=== PATIENT | female | born 1945 | race Caucasian/White ===

== ENCOUNTER → 2017-05-10 12:22 | Outpatient (CLI) | payer MEDICARE, OTHER, SELFPAY ==
--- NOTE | 2017-05-10 13:00 | STEWCON_ITS ---
Reason For Study: Abnormal EKG, Syncope Stress Results Protocol: Dobutamine Stress Echo Maximum Predicted HR: 147 bpm Target HR: 125 bpm% Maximum Pre dicted HR: 88 % DurationHeart Rate Stage (mm:ss) (bpm) BPCom ment Baseline 73 156/95 Definity 0.5 ML USed DSE 10 MCG 3:16 65 137/77 DSE 20 MCG 3:00 71 174/71 DSE 30 MCG 5:05 13 0 173/88Atropine 0.5 MG IVP Recovery 86 131/74 Stress Duration: 11:21 mm:ss Maximum Stress HR: 130 bpmME TS: 1 Baseline Echocardiogram Findings Stress Echo Wall motion Data Resting WMIntermediate WMStress WM Resting Wall Motion Wall Motion Stress No regional wall motion Basal anteroseptal: Mildly abnormalities noted. hypokinetic. Mid-Anterior : Hypokinetic. Anterior [place] : Mildly hypokinetic. EKG Data NSR with LAHB, LBBB. The patient was titrated from 10 mcg to a maximun of 30 mcg of dobutamine during the stress. The maximum heart rate attained was 130 beats per minute. This was 88% of maximum predicted heart rate. During dobutamine infusion, there were no ST or T wave changes noted to suggest ischemia. Interpretation Summary Basal anteroseptal: Mildly hypokinetic Mid-Anterior : Hypokinetic Anterior [place] : Mildly hypokinetic The patient was titrated from 10 mcg to a maximun of 30 mcg of dobutamine during the stress. Abnormal, adequate dobutamine echocardiogram. Positive for ischemia by echocardiographic criteria. Patient had evidence of mid anterior anteroseptal and anteroapical hypokinesis at peak infusion noted in the parasternal long and parasternal short views. No anginal symptoms noted. Hypertensive blood pressure response to dobutamine. Patient developed A-V dissociation during infusion with associated episodes of supraventricular tachycardia with a wide-complex morphology. This persisted until around 2 minutes 22 seconds into recovery when the patient's rhythm restored to normal sinus rhythm with first-degree AV block. Decreased poor echo windows required Definity infusion. Final LVEF of 65%. Anterior wall motion abnormalities may have been made due to intraventricular conduction delay and ventricular arrhythmia. Recommend clinical correlation. Ordering Physician: Damion Alcantar Referring Physician: Damion Alcantar Performed By: Staci Arcos RDCS, RVT
== END ==
PROVIDERS: Family Provider Family Medicine; PCP Family Medicine; Visit Provider Internal Medicine Cardiovascular Disease
DX: R94.31 Abnormal electrocardiogram [ECG] [EKG] (principal); R55 Syncope and collapse; G47.33 Obstructive sleep apnea (adult) (pediatric); I27.20 Pulmonary hypertension, unspecified
CPT/HCPCS: 93017; 93350; J7030; Q9957; A4216; C8928

== ENCOUNTER → 2017-05-12 15:12 | Outpatient (CLI) | payer MEDICARE, OTHER, SELFPAY ==
[2017-05-12 14:22] VITALS: BP 136/72; BMI 36.8
[2017-05-12 16:39] LABS: Absolute Neutrophil Count 3.5 X10^3/uL (2.0-7.7); Basophil# 0.04 X10^3/uL; Basophil% 0.7 % (0-1); Eosinophil# 0.19 X10^3/uL; Eosinophils% 3.1 % (0-5); Hematocrit 42.4 % (37-47); Hemoglobin 13.9 g/dl (12.0-15.0); Lymphocyte % 28.1 % (19-41); Mean Corp Hgb Conc 32.8 g/gl (32-36); Mean Corpuscular Hgb 30.2 pg (27.0-32.0); Mean Corpuscular Volume 92.2 fL (81-99); Mean Platelet Vol. 9.6 fl (6.2-12.0); Monocyte# 0.57 X10^3/uL; Monocyte% 9.4 % (0-10); Neutrophil # 3.54 X10^3/uL (2.7-7.7); Neutrophil % 58.4 % (47-70); Platelet Count 190 K/mm3 (150-450); RBC Distribution Width CV 13.3 % (11.6-14.6); RBC Distribution Width SD 43.3 fl (35.1-43.9); White Blood Count 6.1 K/mm3 (4.4-11.0)
[2017-05-12 16:41] LABS: POSITIVE COUNT NO; POSITIVE DIFFERENTIAL NO; POSITIVE MORPHOLOGY NO
[2017-05-12 16:47] LABS: Prothrombin Time (Protime)PT. 12.5 SECONDS (11.7-14.9)
[2017-05-12 16:48] LABS: Partial Thromboplast Time 25.5 Seconds (24.1-36.2)
[2017-05-12 17:02] LABS: Anion Gap 6 (5-15); BUN 18 mg/dL (7-18); BUN/Creat Ratio 22.9 RATIO (10-20); Calcium,Total 8.5 mg/dL (8.5-10.1); Chloride 108 mmol/L (98-107); Creatinine, Serum 0.79 mg/dL (0.55-1.02); EST Glomerular Filtration Rate 76 mL/min (>60); Est Glom Filt Rate - Afr Amer 92 mL/min (>60); Glucose 100 mg/dL (74-106); Potassium 4.1 mmol/L (3.5-5.1); Sodium Level 141 mmol/L (136-145)
== END ==
PROVIDERS: Family Provider Family Medicine; PCP Family Medicine; Visit Provider Physician Assistant Medical
DX: R94.39 Abnormal result of other cardiovascular function study (principal); Z79.01 Long term (current) use of anticoagulants; R55 Syncope and collapse
CPT/HCPCS: 36415; 80048; 85025; 85610; 85730

== ENCOUNTER 2017-05-15 08:19 | Day surgery (SDC) | payer MEDICARE, OTHER, SELFPAY ==
[2017-05-12 14:22] VITALS: BP 136/72; BMI 36.8
[2017-05-15] VITALS (35 sets, daily range): BP systolic 102–172; BP diastolic 50–84; PULSE 68–83; RESP 12–19; TEMP 35.8–36.5; O2SAT 92–100; BMI 36.8; BMI 36.9
[2017-05-15 11:16] LABS: ACT Activated Clotting Time 202 sec (74-137)
--- NOTE | 2017-05-15 11:16 | EKG12_ITS ---
Test Reason : POST PCI Blood Pressure : / mmHG Vent. Rate : 063 BPM Atrial Rate : 063 BPM P-R Int : 186 ms QRS Dur : 160 ms QT Int : 464 ms P-R-T Axes : 079 -81 079 degrees QTc Int : 474 ms AV dual-paced rhythm Abnormal ECG Confirmed by LUANNE ALSTON, KARLA ([id number]), subeditor MADHU JOSE ([id number]) on 05/22/2017 2:13:42 PM Referred By: Damion Alcantar Confirmed By:KARLA STROUD MD
[2017-05-15] MEDS: 0.9% Normal Saline 1,000 ML 150 ML IV (11:45)
[2017-05-15 12:59] LABS: Hematocrit 41.3 % (37-47); Hemoglobin 13.9 g/dl (12.0-15.0); Mean Corp Hgb Conc 33.7 g/gl (32-36); Mean Corpuscular Hgb 30.5 pg (27.0-32.0); Mean Corpuscular Volume 90.8 fL (81-99); Mean Platelet Vol. 12.2 fl (6.2-12.0); Platelet Count 254 K/mm3 (150-450); RBC Distribution Width CV 14.1 % (11.6-14.6); RBC Distribution Width SD 45.1 fl (35.1-43.9); Red Blood Count 4.55 M/mm3 (4.2-5.4); Scan Indicated on CBC? Y/N NO
--- NOTE | 2017-05-15 13:37 | CRPH1.INST_ITS ---
General Education CAD and cardiac anatomy and function:: Patient communicates acknowledgment Explanation of diagnoses and procedures:: Patient communicates acknowledgment Sign/Symptoms of MA:: Patient communicates acknowledgment Antiplatelet therapy: Patient communicates acknowledgment Proper use of NTG-SL: Not instructed Emergency procedures and activation of EMS: Patient communicates acknowledgment Compliance of all prescribed medications: Patient communicates acknowledgment Smoking Patient Nicotine/Smoking Risk Factors Are:: Non-smoker Nicotine/Smoking Response Code:: Patient communicates acknowledgment Dyslipidemia Patient Dyslipidemia Risk Factors Are:: Total Cholesterol, Triglycerides Dyslipidemia Response Code:: Patient communicates acknowledgment Overweight/Obesity Patient Overweight/Obesity Risk Factors Are:: Obesity - > or = 30 Recommendations Include:: Weight loss of 5-10%, Reduced calorie diet, Exercise 5 -7 times/week Overweight/Obesity:: Patient communicates acknowledgment Hypertension Patient Hypertension Risk Factors Are:: No documented hx of HTN Hypertension:: Patient communicates acknowledgment Heart Disease Heart Disease Response Code:: Patient communicates acknowledgment Diabetes Patient Diabetes Risk Factors Are:: No documented hx of diabetes Diabetes:: Patient communicates acknowledgment Metabolic Syndrome Metabolic Syndrome Response Code:: Patient communicates acknowledgment Sedentary Patient Sedentary Risk Factors Are:: Lack of regular exercise Recommendations Include:: Aerobic exercise 5-7 times/week for 20-30 minutes continuously, Benefits of regular exercise, Discussed home walking program, Monitored Outpatient Cardiac Rehab Sedentary Response Code:: Patient communicates acknowledgment Stress Stress Response Code:: Patient communicates acknowledgment
--- NOTE | 2017-05-15 13:37 | CRPHASE1 ---
Patient Data/Charges Director Learning Services:: Damion Alcantar Refer Phase II:: Yes Phase II Referral:: [facility] Risk Factors/Lifestyle Smoking Status: Never smoker Second-Hand Smoke:: No Hx Hypertension: No Hx Diabetes Mellitus Type 1: No Hx Diabetes Mellitus Type 2: No Hx Metabolic Disorders: No Hx Dyslipidemia: Yes Hx Obesity: Yes Height: 1.6 m Weight:: 94.6 kg BMI: 36.9 ETOH: No Caffeine: No Substance Abuse: No Family History: Family History (Last Updated 05/12/17 @ 14:04 by Amrit Juarez) Father Unknown family medical history Phase I Education Given On:: [place], Nutrition, Antiplatelet medication, CHF, Smoking cessation, Diabetes - Type I, Diabetes - Type II Issues Affecting Care:: Physical - back and arm Knowledge of Condition:: Yes Learning Preferences: Verbal, Written, Audio/Visual, Demonstration Hospital Course Cardiac Cath Date:: 05/15/17 Medical/Surgical History Dyslipidemia:: Yes GERD:: Yes CABG: No Pacemaker:: Yes
--- NOTE | 2017-05-15 13:42 | CRPHASE1_ITS ---
Patient Data/Charges Hybrid Tester:: Damion Alcantar Refer Phase II:: Yes Phase II Referral:: [facility] Risk Factors/Lifestyle Smoking Status: Never smoker Second-Hand Smoke:: No Hx Hypertension: No Hx Diabetes Mellitus Type 1: No Hx Diabetes Mellitus Type 2: No Hx Metabolic Disorders: No Hx Dyslipidemia: Yes Hx Obesity: Yes Height: 1.6 m Weight:: 94.6 kg BMI: 36.9 ETOH: No Caffeine: No Substance Abuse: No Family History: Family History (Last Updated 05/12/17 @ 14:04 by Amrit Juarez) Father Unknown family medical history Phase I Education Given On:: [place], Nutrition, Antiplatelet medication, CHF, Smoking cessation, Diabetes - Type I, Diabetes - Type II Issues Affecting Care:: Physical - back and arm Knowledge of Condition:: Yes Learning Preferences: Verbal, Written, Audio/Visual, Demonstration Hospital Course Cardiac Cath Date:: 05/15/17 Medical/Surgical History Dyslipidemia:: Yes GERD:: Yes CABG: No Pacemaker:: Yes
[2017-05-15 13:56] LABS: CPK Total, Creatine Kinase 150 U/L (26-192)
[2017-05-15 14:41] LABS: ACT Activated Clotting Time 158 sec (74-137)
[2017-05-15] MEDS: Gabapentin 600 MG Tablet PO (16:43)
[2017-05-15] MEDS: DULoxetine Hcl 60 MG Capsule 120 MG PO (16:43)
[2017-05-15] MEDS: Mirabegron 50 MG TAB.ER.24H PO (16:43)
[2017-05-15] MEDS: Celecoxib 200 MG Capsule 400 MG PO (16:43)
[2017-05-15 18:24] LABS: Hemoglobin 13.1 g/dl (12.0-15.0); Mean Corp Hgb Conc 32.8 g/gl (32-36); Mean Corpuscular Hgb 29.8 pg (27.0-32.0); Mean Corpuscular Volume 90.9 fL (81-99); Mean Platelet Vol. 9.3 fl (6.2-12.0); Platelet Count 167 K/mm3 (150-450); RBC Distribution Width CV 13.2 % (11.6-14.6); RBC Distribution Width SD 43.6 fl (35.1-43.9); White Blood Count 7.4 K/mm3 (4.4-11.0)
[2017-05-15 18:42] LABS: Scan Indicated on CBC? Y/N NO
[2017-05-15 19:04] LABS: CPK Total, Creatine Kinase 160 U/L (26-192)
--- NOTE | 2017-05-15 20:30 | NURSING ---
16f appiah catheter inserted with sterile technique per Physician order. Indications and procedure explained to pt. Pt verbalizing understanding and denies questions. 10ml of sterile water inflating balloon. 200 ml Clear yellow urine draining at this time.
[2017-05-15 23:01] LABS: Hematocrit 40.1 % (37-47); Hemoglobin 13.2 g/dl (12.0-15.0); Mean Corp Hgb Conc 32.9 g/gl (32-36); Mean Corpuscular Hgb 29.9 pg (27.0-32.0); Mean Corpuscular Volume 90.9 fL (81-99); Platelet Count 162 K/mm3 (150-450); RBC Distribution Width CV 13.2 % (11.6-14.6); RBC Distribution Width SD 43.5 fl (35.1-43.9); Red Blood Count 4.41 M/mm3 (4.2-5.4); White Blood Count 7.8 K/mm3 (4.4-11.0)
[2017-05-15 23:02] LABS: Scan Indicated on CBC? Y/N NO
[2017-05-15 23:16] LABS: CPK Total, Creatine Kinase 156 U/L (26-192)
[2017-05-16] VITALS (17 sets, daily range): BP systolic 106–147; BP diastolic 48–69; PULSE 71–85; RESP 12–17; TEMP 35.9–37.2; O2SAT 95–100
[2017-05-16 06:30] LABS: Hematocrit 39.7 % (37-47); Hemoglobin 12.9 g/dl (12.0-15.0); Mean Corp Hgb Conc 32.5 g/gl (32-36); Mean Corpuscular Hgb 29.9 pg (27.0-32.0); Mean Corpuscular Volume 91.9 fL (81-99); Mean Platelet Vol. 9.5 fl (6.2-12.0); Platelet Count 155 K/mm3 (150-450); RBC Distribution Width CV 13.2 % (11.6-14.6); RBC Distribution Width SD 44.6 fl (35.1-43.9); Red Blood Count 4.32 M/mm3 (4.2-5.4); White Blood Count 7.7 K/mm3 (4.4-11.0)
[2017-05-16 06:38] LABS: Scan Indicated on CBC? Y/N NO
[2017-05-16 06:56] LABS: Anion Gap 6 (5-15); BUN 13 mg/dL (7-18); Calcium,Total 8.3 mg/dL (8.5-10.1); Chloride 108 mmol/L (98-107); Cholesterol 198 mg/dL (200); Creatinine, Serum 0.68 mg/dL (0.55-1.02); EST Glomerular Filtration Rate 89 mL/min (>60); Est Glom Filt Rate - Afr Amer 108 mL/min (>60); Estimated Creatinine Clearance 41.45 ml/min; Glucose 103 mg/dL (74-106); High Density Lipoprotein 51 mg/dL; Potassium 3.8 mmol/L (3.5-5.1); Sodium Level 140 mmol/L (136-145); Triglycerides 103 mg/dL; Very Low Density Lipoprotein 21 mg/dL (5-40)
[2017-05-16 07:21] LABS: ACT Activated Clotting Time 180 sec (74-137)
[2017-05-16] MEDS: Aspirin 81 MG TAB.CHEW PO (07:33)
[2017-05-16] MEDS: Gabapentin 600 MG Tablet PO (07:33)
--- NOTE | 2017-05-16 09:06 | PCM.DC.CCA ---
Discharge Diet: Low fat/ Low Cholesterol Discharge Activity: Return to Normal Activity - Do not lift anything greater than 10 lbs for 3 days May shower in (days): 1 Lifting Restrictions: 10 pounds and also avoid any pushing or pulling for 3 days after your test. Call your doctor if your incision/area has: Increased Pain/ Swelling, Increased Redness, Foul Smelling Discharge, Swelling at the incision site Call your doctor if you observe: Fever of 101 or Higher, Shortness of breath, Chest pain Remove Dressing in (days):: 1 Cleanse incision/area with: Soap & Water Additional Dressing/Incision Instructions:: Keep the dressing (bandage) on until the next morning. You may then shower, but do not take a tub bath for 5 days after your test. It is normal to have some tenderness and discomfort at the puncture site. Sometimes bruising also occurs. However, if pain, numbness, or coldness occurs below the puncture site (in your leg, toes, arms or fingers) call your doctor at once. You may have a small, marble sized knot at the puncture site. This is normal. Do not rub it. It will go away in 4-6 weeks. Bleeding can occur from the area where the puncture was done. Blood may spurt or drip from the site. If blood spurts, apply pressure right away to stop bleeding and call 911. Although rare, bleeding into the tissue (hematoma) can also occur. If this happens, a large, firm area goose egg under the skin will appear. If any of these occur, lie down as flat as you can and have someone apply firm pressure to the cath site with a gauze pad or a clean washcloth for 10-15 minutes. Call 911 or go to the Emergency Department. Additional Instructions: You were started on Plavix, you need to stay on Plavix for at least one year before this can be interrupted. If anyone asks that you hold your Plavix you need to contact our office prior to doing so. Unfortunately this means that you back surgery will be post-poned. At your office visit we will discuss cardiac rehab. Allergies/Adverse Reactions: Allergies acetaminophen [From Vicodin] Allergy (Verified 05/12/17 14:03) Itching amoxicillin [From Augmentin] Allergy (Verified 05/12/17 14:03) Unknown atorvastatin [From Lipitor] Allergy (Verified 05/12/17 14:03) Arm pain clavulanic acid [From Augmentin] Allergy (Verified 05/12/17 14:03) Itching hydrocodone [From Vicodin] Allergy (Verified 05/12/17 14:03) Itching pregabalin [From Lyrica] Allergy (Verified 05/12/17 14:03) Rash rofecoxib [From Vioxx] Allergy (Verified 05/12/17 14:03) Unknown sulindac [From Clinoril] Allergy (Verified 05/12/17 14:03) Unknown Medications to take at Discharge Clonazepam [Klonopin] 0.5 mg PO DAILY 12/16/16 Duloxetine Hcl [Cymbalta] 120 mg PO DAILY 12/16/16 Fentanyl [Duragesic] 50 mcg TRANSDERM. Q72H 12/16/16 Gabapentin [Neurontin] 600 mg PO BIDCM 12/16/16 Mirabegron [Myrbetriq] 50 mg PO DAILY 12/16/16 Montelukast [Singulair] 10 mg PO DAILY 12/16/16 Oxygen, Home [Home Oxygen] 2 lpm NASAL QHS 12/16/16 TraMADol [Ultram] 50 mg PO Q6H PRN PRN 12/16/16 Trospium Chloride [Sanctura Xr] 60 mg PO DAILY 12/16/16 celecoxib 200 mg capsule 400 mg PO QDAY cap 05/12/17 clopidogrel 75 mg tablet 75 mg PO QDAY #34 tab 05/12/17 Aspirin [Aspirin, Baby] 324 mg PO DAILY@0800 05/15/17 Primary Care Physician: Marta Perez DO [Primary Care Provider] - Please follow up with your Primary Care Physician in: 4-6 weeks Please Follow Up With: Heriberto Vale NP-C When: 06/08 at 10am Proposed Discharge Date: 05/16/17 Cardiac Rehabilitation Info Cardiac Rehabilitation Program Information: Cardiac Rehabilitation is important for patients like you who are recovering from a heart problem. Cardiac rehabilitation programs are recognized as integral to the continued care of the patient with coronary heart disease. The cardiac rehabilitation program is designed to optimize a patient's physical, psychological, and social functioning. Health director day care center work in cardiac rehabilitation programs and assist you with getting the treatments you need to get stronger and healthier - like exercise, healthy eating habits, and medications. Cardiac rehabilitation has been show to help people with heart problems live longer and have better life enjoyment than people who do not go to cardiac rehabilitation. Please contact the Cardiac Rehabilitation Program at [facility] at in two weeks if you have not heard from them.
--- NOTE | 2017-05-16 09:42 | PN.CARD_ITS ---
Subjectve: Patient doing well this morning, telemetry negative overnight, EKG normal sinus rhythm with paced ventricular response, no ventricular ectopy noted. CKs within normal limits, hemoglobin and creatinine within normal limits. Patient has some mild ecchymosis over her right groin, and required temporary FemoStop placement last evening for a small hematoma. The patient has 2+ DP pulses this morning. She has no femoral bruits. Objective: Vital Signs Temp Pulse Resp BP Pulse Ox 98.9 F 76 17 143/66 H 96 05/16/17 08:00 05/16/17 08:00 05/16/17 08:00 05/16/17 08:00 05/16/17 08:00 Oxygen Flow Rate 2 Oxygen Delivery Method Room Air Weight: 205 lb 11.06 oz Body Mass Index (BMI) 36.9 Intake and Output for Last 24 Hours 05/14/17 05/15/17 05/16/17 23:59 23:59 23:59 Intake Total 1000 / 1000 1300 / 1300 Output Total 1200 / 1200 750 / 750 Balance -200 / -200 550 / 550 General: Awake, Alert, Oriented x 3 HEENT: PERRL, EOMI, Sclera Non Icteric Neck: Supple, Good ROM, No Lymph Node Enlargement Lungs: Clear to auscultation Cardiovascular: Regular Rhythm, Normal S1, Normal S2, No Murmurs, No Rubs, No Gallops Vascular: No Carotid Bruits, Normal Femoral Pulses, Normal Radial Pulses, Normal Dorsalis Pedal Pulse, Normal Posterior Tibial Pulses Abdomen: Bowel Sounds Present, Soft, Non Tender, No HSM, No Organomegaly Extremities: No Cyanosis, No Clubbing, No edema Neurological: No Focal Motor or Sensory Deficit 05/15/17 12:40: WBC 6.0, RBC 4.55, Hgb 13.9, Hct 41.3, MCV 90.8, MCH 30.5, MCHC 33.7, RDW 14.1, RDW Differential 45.1 H, Plt Count 254, MPV 12.2 H 05/15/17 18:00: WBC 7.4, RBC 4.40, Hgb 13.1, Hct 40.0, MCV 90.9, MCH 29.8, MCHC 32.8, RDW 13.2, RDW Differential 43.6, Plt Count 167, MPV 9.3 05/15/17 22:55: WBC 7.8, RBC 4.41, Hgb 13.2, Hct 40.1, MCV 90.9, MCH 29.9, MCHC 32.9, RDW 13.2, RDW Differential 43.5, Plt Count 162, MPV 9.0 05/16/17 06:00: WBC 7.7, RBC 4.32, Hgb 12.9, Hct 39.7, MCV 91.9, MCH 29.9, MCHC 32.5, RDW 13.2, RDW Differential 44.6 H, Plt Count 155, MPV 9.5 05/16/17 06:10: Sodium 140, Potassium 3.8, Chloride 108 H, Carbon Dioxide 26.0, Anion Gap 6, BUN 13, Creatinine 0.68, Est GFR (MDRD) Af Amer 108, Est GFR (MDRD ) Non-Af 89, BUN/Creatinine Ratio 19.0, Glucose 103, Calcium 8.3 L, Triglycerides 103, Cholesterol 198, LDL Cholesterol 126, VLDL Cholesterol 21, HDL Cholesterol 51 Rhythm: EKG: ECHO: Stress Test: Cardiac Cath: PCI: CT Surgery: Holter monitor: EPS: PPM: CXR: Chest CT Scan: Assessment/Plan 1. Coronary artery disease: Patient had FFR guided angioplasty and stenting to her mid LAD and proximal obtuse marginal yesterday with an excellent result. No additional evaluation or stress testing needs to be performed at this time. Patient will need to postpone her back surgery at least for 6 months time and this was discussed with her prior to intervention. Patient remain on baby aspirin and Plavix for as long as possible.. Patient is unable to tolerate beta -caleb and MATILDA inhibitor arms at this time. 2. Hyperlipidemia: Patient is unable to tolerate Lipitor in the past. Recommended outpatient gemfibrozil trial and repeat lipid profile in 6 weeks time. 3. Patient may be discharged home if her right groin is clean/dry/intact after removal of her [place], and ambulation. I advised the patient to notify us immediately if there is any pain, hematoma, bleeding, fevers or chills. In addition she has had some mild dementia or sundowning phenomena last evening which has completely resolved this morning. This is been related to the family. 4. Patient will follow-up with me in the office in several weeks time. Code Visit Inpatient E&M: 38305 Subs Hosp L2
[2017-05-16] MEDS: Mirabegron 50 MG TAB.ER.24H PO (10:17)
[2017-05-16] MEDS: Clopidogrel Bisulfate 75 MG Tablet PO (10:17)
[2017-05-16] MEDS: Montelukast 10 MG Tablet PO (10:18)
[2017-05-16] MEDS: clonazePAM 0.5 MG Tablet PO (10:20)
--- NOTE | 2017-05-16 11:16 | EKG12_ITS ---
Test Reason : AM EKG Blood Pressure : / mmHG Vent. Rate : 073 BPM Atrial Rate : 073 BPM P-R Int : 188 ms QRS Dur : 156 ms QT Int : 458 ms P-R-T Axes : 067 -77 079 degrees QTc Int : 504 ms Atrial-sensed ventricular-paced rhythm Abnormal ECG Confirmed by LUANNE ALSTON, KARLA ([id number]), editor map MADHU JOSE ([id number]) on 05/22/2017 2:12:58 PM Referred By: Damion Alcantar Confirmed By:KARLA STROUD MD
--- NOTE | 2017-05-17 10:49 | CL.I_ITS ---
Patient Name: VALENCIA HENRY Study Date: 05/15/2017 Performing: Damion Alcantar MD Ht: 62.99 inches 160 cm : 1945 Wt: 207.23 lbs 94 kg Age: 71 Gender: female BSA: 1.96 PROCEDURE(S) PERFORMED ES28-AHK/COR/LV JN99-NCT, CORONARY OR GRAFT, INITIAL VESSEL CLINICAL PROFILE AND CO-MORBIDITIES INDICATIONS: Abnormal cardiac stress test, Shortness of Breath Stress/Imaging Stress Echocardiogram: Yes Result: Positive High Risk Stress Echocardiogram: Posit deann High Risk Angina Classification Anginal Classification w/in 2 Weeks: CCS III CAD Presentations: Other: Dyspnea on exertion. Comorbidities/Risk Factors: Hypertension Dyslipidemia Chronic Lung Disease CONCLUSIONS Double vessel CAD of the LAD and OM#1 Non-obstructive disease in non-dominant RCA; too small for PCI. Successful PTCA/PALMA of the Successful FFR guided PCI/PALMA to mid LAD with a 3.0 x 12 Promus Synergy; p ost dilated with 3.25 x 8 NC Balloon; 75%-->0%, no dissection or significant plaque shift into DIAG#1 . Successful PTCA/PALMA of the Successful FFR guided PCI/PALMA of Proximal OM#1 with a 3.0 x 20 Promus Syne rgy at 12 jaylene; 75%--0%, no dissection or encroachment on main AV LCX. RECOMMENDATIONS FFR of LAD and OM#1; medical management of RCA. Highly recommend quitting all tobacco products Follow up with primary assessor Risk factor modification ASA Indefinitley Plavix for at least 12 months Routine post interventional care Refer for Outpatient Cardiac Rehab Manual sheath removal per protocol Follow up with Dr. Alcantar Pt will need at least 6 months of DAPT prior to back surgery. Would recommend repeat dobs echo prior to surgery. DESCRIPTION OF PROCEDURE The patient arrived to the procedure lab. The risks and benefits of the procedure as well as a full d escription of our services here and lack of surgical backup were fully explained to the patient and/o r their significant other prior to the catheterization. The Timeout was completed, verifying the kleber ect patient and procedure. The patient's procedural site was prepped and draped in the usual fashion. Local anesthetic was given subcutaneously to right groin region with Lidocaine 2%. Using a modified Seldinger technique, arterial access was obtained via the right femoral artery, a 4Fr sheath was inse rted. Left Coronary Artery selective angiography was performed in multiple views using a 4 Fr. JL5 c atheter. Right Coronary Artery selective angiography was then performed in multiple views using a 4 F r. 3DRC catheter. Left Ventriculography was performed in GIPSON projection using a 4 Fr. Pigtail cathete r. LV to AO pullback pressures were then recorded Arterial sheath was exchanged for a 6 Fr Sheath 3.5 EBU Guide catheter was inserted and engaged into the LCA. [employer] Verratta Guide wire was advanced to the LAD. The FFR/iFR wire was inserted Adenosin e was then given per protocol Pressures and FFR/iFR were then recorded. FFR Ratio post Adenosine: 0.7 8 FFR Ratio Baseline: 0.91 universal Guide wire was advanced to the 1st Diagonal. Guide wire was inse rted as a payam wire 3.0 by 12 synergy Drug Eluting stent was inserted Drug Eluting stent was advance d across the lesion in the LAD, mid. 3.25 by 8 NC Balloon catheter was inserted. Balloon catheter was inserted post stent. [place]atta Guide wire was repositioned to the 1st OM Adenosine was then given per protocol Pressures and FFR/iFR were then recorded. FFR Ratio Baseline: 0.96 FFR Ratio post Adenosine : 0.76 3.0 by 20 Drug Eluting stent was inserted Drug Eluting stent was advanced across the lesion in the first obtuse marginal, proximal.. . The arterial sheath was sutured in place and capped. CORONARY ANGIOGRAPHY DOMINANCE: Left Dominant LEFT HEART ASSESSMENT Left Ventricular Ejection Fraction: by LV Gram 65 % Normal LV wall motion LEFT MAIN: Angiographically normal LEFT ANTERIOR DECENDING ARTERY: MID LAD: 75 % Stenosis CIRCUMFLEX ARTERY: Angiographically normal OM 1: Proximal - 75 % Stenosis RIGHT CORONARY ARTERY: MID RCA: 60 mid diffuse % Stenosis INTERVENTION INFORMATION LESION SITE: LAD (Mid) lesion at bifurcation: Yes, thrombus present: No, lesion length: 12 mm, culprit lesion: Yes, Lesion C omplexity: Non-High/Non-C Pre Stenosis: 75 % Pre intervention CECE flow: 3 PROCEDURE: Drug Eluting Stent with pre and post dilatation, FFR of mid LAD=0.78 Post Stenosis: 0 % Post intervention CECE flow: 3 Lesion Devices: Agent Panda Coronary FFR Wire Medtronic 6 Fr EBU3.5 100cm Guide Catheter [place] .014 [employer] [place] Straight 190cm Joel Sci Synergy MR PALMA 3.00x12 Joel Sci NC EMERGE MR 3.25x08 BALLOON LESION SITE: 1st OM (Proximal) Lesion Complexity: High/C, lesion at bifurcation: Yes, thrombus present: No, culprit lesion: No Pre Stenosis: 75 % Pre intervention CECE flow: 3 PROCEDURE: Drug Eluting Stent with pre and post dilatation FFR=0.76 Post Stenosis: 0 % Post intervention CECE flow: 3 Lesion Devices: [place] Coronary FFR Wire Medtronic 6 Fr EBU3.5 100cm Guide Catheter Joel Sci Synergy MR PALMA 3.00x20 COMPLICATIONS No Complications PROCEDURE MEDICATIONS Oxygen: 2 L/min via nasal cannula Adenosine drip for FFR 21.8 ml IV at 774ml/hr 05/15/2017 10:23:15 Adenosine drip for FFR 15.7 ml IV at 774ml/hr @ 05/15/2017 10:44:54 Heparin 6000 unit(s) IV 05/15/2017 10:22:25 Heparin 4000 unit(s) IV 05/15/2017 10:59:08 Nitro 200 mcg IC 05/15/2017 10:22:20 Nitro 200 mcg IC 05/15/2017 10:22:20 Nitro 200 mcg IC 05/15/2017 10:38:09 IV Fluids: .9 NaCl increased to wide open ml/hr 05/15/2017 10:31:14 SUMMARY OF HEMODYNAMIC DATA Time AIR REST ECG 09:17:46 AO 114/62 (85) SA 10:10:32 LV 142/-5, 11 10:16:36 LV 128/-14, 4 10:16:42 LVp 114/-16, 0 10:16:49 AOp 118/48 (73) 10:16:54 AO 91/49 (68) 10:38:50 Signed By Damion Alcantar MD On 05/15/2017 11:03:58 AM Damion Alcantar MD
== END 2017-05-16 12:40 | disposition home or self-care (01) ==
LOC: CLSP 08:20 → ICU 11:13
PROVIDERS: Family Provider Family Medicine; PCP Family Medicine; Visit Provider Internal Medicine Cardiovascular Disease
DX: I25.10 Atherosclerotic heart disease of native coronary artery without angina pectoris (principal); E78.5 Hyperlipidemia, unspecified; F03.90 Unspecified dementia, unspecified severity, without behavioral disturbance, psychotic disturbance, mood disturbance, and anxiety; I10 Essential (primary) hypertension; J98.4 Other disorders of lung; G47.33 Obstructive sleep apnea (adult) (pediatric); K21.9 Gastro-esophageal reflux disease without esophagitis; R94.39 Abnormal result of other cardiovascular function study; I27.29 Other secondary pulmonary hypertension; Z95.0 Presence of cardiac pacemaker
CPT/HCPCS: 80048; 80061; 82550; 85027; 85347; 92928; 93005; 93458; 93571; 93572; J0153; J7030; J7040; Q9967; C1725; C1769; C1874; C1887; C1894; C9600

== ENCOUNTER → 2017-05-22 14:09 | Outpatient (CLI) | payer MEDICARE, OTHER, SELFPAY ==
[2017-05-15 13:41] VITALS: BMI 36.9
--- NOTE | 2017-05-22 14:13 | RAD_ITS ---
STUDY: X-RAY - LEFT WRIST REASON FOR EXAM: Female, 71 years old. Fracture follow-up TECHNIQUE: 3 view(s) of the wrist were obtained. COMPARISON: 05/01/2017. FINDINGS: Again seen is a comminuted impacted fracture of the distal radial metaphysis with dorsal rotation of the articular surface. Although there is some new bone formation, the fracture lines are very evident and nonunion is not excluded. There is shortening. There is a mildly distracted fracture of the tip of the ulnar styloid. There is no dislocation. There is mineralization. RAD/Wrist min 3 Views IMPRESSION: Continued extensive fractures of the distal radius. Nonunion not excluded. Electronically Signed: Alberto Duong MD at 18:48 EST , Service support ,
== END ==
PROVIDERS: Family Provider Family Medicine; PCP Family Medicine; Visit Provider Orthopaedic Surgery
DX: M25.532 Pain in left wrist (principal)
CPT/HCPCS: 73110

== ENCOUNTER → 2017-06-12 12:52 | Outpatient (CLI) | payer MEDICARE, OTHER, SELFPAY ==
[2017-05-15 13:41] VITALS: BMI 36.9
--- NOTE | 2017-06-12 12:57 | RAD_ITS ---
STUDY: X-RAY - LEFT WRIST REASON FOR EXAM: Fracture. TECHNIQUE: 3 view(s) of the wrist were obtained. COMPARISON: Radiographs 05/22/2017. FINDINGS: There is osteopenia. There is no change in alignment and position of the mildly impacted and mildly dorsal angulated healing fracture of the distal radius. There is an ulnar styloid process avulsion. Normal radiocarpal articulation. Normal distal radioulnar articulation. Normal carpal bones. There is joint space narrowing of the triscaphe articulation. There is joint space narrowing of the carpometacarpal articulation of the thumb. Normal second through fifth carpometacarpal articulations. Normal visualized metacarpal bones. There is a small soft tissue calcification ulnar to the distal ulnar diaphysis. RAD/Wrist min 3 Views IMPRESSION: No significant change of the healing distal radial fracture. Electronically Signed: Walker Hunter MD at 14:57 EST Tel , Service support ,
== END ==
PROVIDERS: Family Provider Family Medicine; PCP Family Medicine; Visit Provider Orthopaedic Surgery
DX: M25.532 Pain in left wrist (principal)
CPT/HCPCS: 73110

== ENCOUNTER → 2017-06-15 14:19 | Outpatient (CLI) | payer MEDICARE, OTHER, SELFPAY ==
[2017-05-15 13:41] VITALS: BMI 36.9
== END ==
PROVIDERS: Family Provider Family Medicine; PCP Family Medicine; Visit Provider Family Medicine
DX: R41.0 Disorientation, unspecified (principal); R30.0 Dysuria
CPT/HCPCS: 87077; 87086; 87088; 87186

== ENCOUNTER → 2017-07-05 10:08 | Outpatient (CLI) | payer MEDICARE, OTHER, SELFPAY ==
[2017-05-15 13:41] VITALS: BMI 36.9
== END ==
PROVIDERS: Family Provider Family Medicine; PCP Family Medicine; Visit Provider Family Medicine
DX: N30.00 Acute cystitis without hematuria (principal)
CPT/HCPCS: 87086; 87088

== ENCOUNTER → 2017-08-21 13:51 | Outpatient (CLI) | payer MEDICARE, OTHER, SELFPAY ==
[2017-05-15 13:41] VITALS: BMI 36.9
--- NOTE | 2017-08-21 13:53 | BI_ITS ---
MAMMOGRAPHY - BILATERAL SCREENING REASON FOR EXAM: Female, 71 years old. Routine annual screening examination. PERTINENT HISTORY: Non-contributory. TECHNIQUE: Digital bilateral breast vijaya (3D mammographic acquisition) in the CC and MLO projections. 2-D mediolateral oblique (MLO) and craniocaudad (CC) views of both breasts were obtained. CAD: Full Field Digital Mammography with Computer Added Detection was performed. COMPARISON: Comparison is made with prior study dated July 15, 2016 and July 01, 2015. FINDINGS: Breast Composition: The breasts are heterogeneously dense, which may obscure small masses. There are no dominant masses or suspicious calcifications. No other significant abnormalities are identified. There has been no significant change since the prior study. BI/SCREENING MAMM (CAD), BILAT IMPRESSION: Stable bilateral screening mammogram. Yearly follow-up mammogram recommended. (A) ASSESSMENT CATEGORY: BIRADS Category 1: Negative. A letter regarding these results will be sent to the patient by the facility within 30 days. Approximately 10% of breast cancers are not detected by mammography. A normal mammogram should not delay biopsy of a clinically suspicious abnormality. [id number] Electronically Signed: Walt Mar MD at 15:24 EDT Tel [phone], Service support ,
== END ==
PROVIDERS: Family Provider Family Medicine; PCP Family Medicine; Visit Provider Family Medicine
DX: Z12.31 Encounter for screening mammogram for malignant neoplasm of breast (principal)
CPT/HCPCS: 77063; 77067

== ENCOUNTER → 2018-04-19 14:01 | Outpatient (CLI) | payer MEDICARE, OTHER, SELFPAY ==
[2017-05-15 13:41] VITALS: BMI 36.9
[2018-04-19 13:17] VITALS: BMI 37.3
[2018-04-19 15:22] LABS: AST(SGOT) 24 U/L (15-37); Alanine Aminotransfer ALT/SGPT 29 U/L (13-56); Albumin, Serum 3.9 g/dL (3.2-5.0); Alkaline Phosphatase 96 U/L (45-117); Bilirubin, Direct 0.12 mg/dL (0.00-0.30); Cholesterol 221 mg/dL (200); Globulin 3.6 g/dL (2.2-4.2); High Density Lipoprotein 68 mg/dL; Protein, Total 7.5 g/dL (6.4-8.2); Triglycerides 63 mg/dL; Very Low Density Lipoprotein 13 mg/dL (5-40)
== END ==
PROVIDERS: Family Provider Family Medicine; PCP Family Medicine; Referring Provider Internal Medicine Cardiovascular Disease; Visit Provider Internal Medicine Cardiovascular Disease
DX: E66.9 Obesity, unspecified (principal); E78.00 Pure hypercholesterolemia, unspecified; Z95.9 Presence of cardiac and vascular implant and graft, unspecified; Z68.39 Body mass index [BMI] 39.0-39.9, adult
CPT/HCPCS: 36415; 80061; 80076

== ENCOUNTER → 2018-05-01 13:44 | Outpatient (CLI) | payer MEDICARE, OTHER, SELFPAY ==
[2017-05-15 13:41] VITALS: BMI 36.9
[2018-04-19 13:17] VITALS: BMI 37.3
--- NOTE | 2018-05-01 13:50 | STEWCON_ITS ---
Reason For Study: PREOP, CAD/ASHD Stress Results Protocol: Dobutamine Maximum Predicted HR: 146 bpm Target HR: 124 bpm % Maximum Predicted HR: 87 % DurationHeart Rate Stage (mm:ss) (bpm) BP Dose Comment BASELINE 70 151/69 2CC DEFINITY STAGE 1 3:15 70 / 10.001CC DEFINITY, BP DID NOT REGISTER STAGE 2 3:00 85 220/8620.00NO SYMPTOMS STAGE 3 3:28 124 202/9030.002CC DEFINITY, 0.25 MG ATROPINE, NO SYMPTOMS STAGE 4 1:34 127 / 40.00 RECOVERY 102 140/90 1 CC DEFINITY Stress Duration: 11:17 mm:ss Maximum Stress HR: 127 bpm Baseline Echocardiogram Findings The estimated ejection fraction is 65 %. Stress Echo Wall motion Data Resting WM Intermediate WM Stress WM Resting Wall Motion Wall Motion Stress No regional wall motion No regional wall motion abnormalities noted. abnormalities noted. EKG Data Normal intervals are noted. The patient was titrated from 10 mcg to a maximum of 40 mcg of dobutamine during the stress. The maximum heart rate attained was 131 beats per minute. This was 89% of maximum predicted heart rate. During dobutamine infusion, there were no ST or T wave changes noted to suggest ischemia. No clinical angina was noted. Interpretation Summary The estimated ejection fraction is 65 %. Abnormal, adequate, dobutamine echocardiogram. Positive for ischemia by echocardiographic criteria. Patient appeared to develop anteroseptal hypokinesis at peak infusion seen in the parasternal long, parasternal short, and apical four-chamber view. This coincided with rate dependent left bundle branch block. Hypertensive blood pressure response to dobutamine. Rare PVCs during infusion into recovery. Left bundle branch block resolved and reverted back to normal sinus rhythm with incomplete right bundle branch block. Final LVEF of 50%. Difficult echo windows requiring Definity enhancing agent. No complications. The study was technically difficult. Contrast injection was performed. Ordering Physician: Damion Alcantar MD Referring Physician: Damion Alcantar Performed By: Monica Swanson, JEFFREY, RVT
--- OUTSIDE RECORDS SUMMARY | 2018-07-03 18:37 | XMS RPT_ITS ---
:1945 Author Organization OHIP Support Name Relationship Address Phone RODNEY HENRY Unavailable [address] + [place] [address] CARL, ALBERTO Unavailable [address] + [place] [address] R Unavailable Unavailable Unavailable CARL, RODNEY Unavailable [address] + [place] [address] CARL, ALBERTO Unavailable [address] + [place] [address] R Unavailable Unavailable Unavailable CARL, RODNEY Unavailable [address] + [place] [address] CARL, ALBERTO Unavailable [address] + [place] [address] R Unavailable Unavailable Unavailable CARL, RODNEY Unavailable [address] + [place] [address] CARL, ALBERTO Unavailable [address] + [place] [address] R Unavailable Unavailable Unavailable CARL, RODNEY Unavailable [address] + [place] [address] CARL, ALBERTO Unavailable [address] + [place] [address] R Unavailable Unavailable Unavailable CARL, RODNEY Unavailable [address] + [place] [address] CARL, ALBERTO Unavailable [address] + [place] [address] R Unavailable Unavailable Unavailable CARL, RODNEY Unavailable [address] + [place] [address] CARL, ALBERTO Unavailable [address] + [place] [address] R Unavailable Unavailable Unavailable CARL, RODNEY Unavailable [address] + [place] [address] CARL ALBERTO Unavailable [address] + [place] [address] R Unavailable Unavailable Unavailable CARL, RODNEY Unavailable [address] [phone] [place] [address] CARL ALBERTO Unavailable [address] + [place] [address] R Unavailable Unavailable Unavailable CARL, RODNEY Unavailable [address] [phone] [place] [address] CARL, ALBERTO Unavailable [address] + [place] [address] R Unavailable Unavailable Unavailable CARL, RODNEY Unavailable [address] [phone] [place] [address] CARL ALBERTO Unavailable [address] + [place] [address] R Unavailable Unavailable Unavailable CARL, RODNEY Unavailable [address] [phone] [place] [address] CARL ALBERTO Unavailable [address] + [place] [address] R Unavailable Unavailable Unavailable CARL, RODNEY Unavailable [address] [phone] [place] [address] CARL ALBERTO Unavailable [address] + [place] [address] R Unavailable Unavailable Unavailable CARL, RODNEY Unavailable [address] [phone] [place] [address] CARL, ALBERTO Unavailable [address] + [place] [address] R Unavailable Unavailable Unavailable CARL, RODNEY Unavailable [facility] [phone] [place] [address] CARL, ALBERTO Unavailable [address] + [place] [address] R Unavailable Unavailable Unavailable CARL, RODNEY Unavailable [address] [phone] [place] [address] CARL, ALBERTO Unavailable [address] + [place] [address] R Unavailable Unavailable Unavailable CARL, BOB Unavailable [address] [phone] [place] [address] CARL, ALBERTO Unavailable [address] + [place] [address] R Unavailable Unavailable Unavailable CARL, BOB Unavailable [address] [phone] [place] [address] CARL, ALBERTO Unavailable [address] + [place] [address] R Unavailable Unavailable Unavailable RODNEY HENRY Unavailable [address] [phone] [place] [address] CARL, ALBERTO Unavailable [address] + [place] [address] R Unavailable Unavailable Unavailable CARLRODNEY Unavailable [address] [phone] [place] [address] CARL, ALBERTO Unavailable [address] + [place] [address] R Unavailable Unavailable Unavailable RODNEY HENRY Unavailable [address] [phone] [place] [address] CARL, ALBERTO Unavailable [address] + [place] [address] R Unavailable Unavailable Unavailable RODNEY HENRY Unavailable [address] [phone] [place] [address] CARL, ALBERTO Unavailable [address] + [place] [address] R Unavailable Unavailable Unavailable CARLRODNEY Unavailable [address] [phone] [place] [address] CARL, ALBERTO Unavailable [address] + [place] [address] R Unavailable Unavailable Unavailable CARLRODNEY Unavailable [address] [phone] [place] [address] CARL, ALBERTO Unavailable [address] + [place] [address] R Unavailable Unavailable Unavailable CARL, RODNEY Unavailable [address] [phone] [place] [address] CARL, ALBERTO Unavailable [address] + [place] [address] R Unavailable Unavailable Unavailable CARL, RODNEY Unavailable [address] + [place] [address] CARL, ALBERTO Unavailable [address] + [place] [address] R Unavailable Unavailable Unavailable CARL, RODNEY Unavailable [address] + [place] [address] CARL, ALBERTO Unavailable [address] + [place] [address] R Unavailable Unavailable Unavailable Care Team Providers Name Role Phone LEVI ESPINOZA Attending Unavailable MALYS, MARTA A Referring Unavailable Damion Alcantar Attending Unavailable Malys, Marta Referring Unavailable Gala Cleveland Attending Unavailable Malys, Marta Referring Unavailable Damion Alcantar Attending Unavailable Damion Alcantar Referring Unavailable Malys, Marta Primary Care Unavailable Damion Alcantar Attending Unavailable Damion Alcantar Referring Unavailable Malys, Marta Primary Care Unavailable Damion Alcantar Attending Unavailable Damion Alcantar Referring Unavailable Malys, Marta Primary Care Unavailable Damion Alcantar Consulting Unavailable Damion Alcantar Attending Unavailable Damion Alcantar Referring Unavailable Malys, Marta Primary Care Unavailable Amrit Juarez Attending Unavailable Joann Walls Attending Unavailable Malys, Marta Referring Unavailable Malys, Marta Primary Care Unavailable Joann Walls Attending Unavailable Joann Walls Referring Unavailable Malys, Marta Primary Care Unavailable Damion Alcantar Attending Unavailable Damion Alcantar Referring Unavailable Malys, Marta Primary Care Unavailable Damion Alcantar Attending Unavailable Damion Alcantar Referring Unavailable Malys, Marta Primary Care Unavailable Damion Alcnatar Consulting Unavailable Melecio Jesus Attending Unavailable Malys, Marta Referring Unavailable Malys, Marta Primary Care Unavailable Melecio Jesus Attending Unavailable Malys, Marta Primary Care Unavailable Damion Alcantar Attending Unavailable Damion Alcantar Referring Unavailable RoofHeriberto Attending Unavailable Malys, Marta Referring Unavailable Malys, Marta Primary Care Unavailable Edin, Melecio Attending Unavailable Malys, Marta Referring Unavailable Malys, Marta Primary Care Unavailable Edin, Melecio Attending Unavailable Edin, Melecio Referring Unavailable Malys, Marta Primary Care Unavailable Malys, Marta Attending Unavailable Malys, Marta Primary Care Unavailable Edin, Melecio Attending Unavailable Malys, Marta Referring Unavailable Malys, Marta Primary Care Unavailable CristoferGala pulido Attending Unavailable Malys, Marta Referring Unavailable Malys, Marta Primary Care Unavailable Damion Alcantar Attending Unavailable Ortiz, Damion Referring Unavailable Malys, Marta Attending Unavailable Malys, Marta Primary Care Unavailable Cristofer, Gala Attending Unavailable Malys, Marta Referring Unavailable Malys, Marta Attending Unavailable Malys, Marta Referring Unavailable Malys, Marta Primary Care Unavailable Cristofer, Gala Attending Unavailable Malys, Marta Referring Unavailable Malys, Marta Primary Care Unavailable Damion Alcantar Attending Unavailable Malys, Marta Referring Unavailable Malys, Marta Primary Care Unavailable Cristofer, Gala Attending Unavailable Malys, Marta Referring Unavailable PROBLEMS PROBLEMS DATE TYPE CONDITION / CODE ATTENDING STATUS SOURCE 05/01/2018 Unknown Z01.810 - Encounter Damion Alcantar for preprocedural [facility] cardiovascular Hospital examination / Repository Z01.810(ICD-10) 05/01/2018 Unknown Z95.9 - Presence of Damion Alcantar cardiac and vascular Community implant and graft, Hospital unspecified / Repository Z95.9(ICD-10) 05/01/2018 Unknown I25.10 - Damoin Alcantar Atherosclerotic heart Community disease of [facility] coronary artery Repository without angina pectoris / I25.10(ICD-10) 05/01/2018 Unknown Z95.0 - Presence of Damion Alcantar cardiac pacemaker / Community Z95.0(ICD-10) Hospital Repository 04/19/2018 Unknown E66.9 - Obesity, Damion Alcantar Active [place] unspecified / Community E66.9(ICD-10) Hospital Repository 04/19/2018 Unknown E78.00 - Pure Damion Alcantar Active [place] hypercholesterolemia, Community unspecified / Hospital E78.00(ICD-10) Repository 04/19/2018 Unknown Z95.820 - Peripheral Damion Alcantar Active [place] vascular angioplasty Community status with implants Hospital and grafts / Repository Z95.820(ICD-10) 11/07/2017 Unknown I44.1 - Gala Cleveland Active [place] Atrioventricular Community block, second degree / Hospital I44.1(ICD-10) Repository 11/07/2017 Unknown I45.10 - Unspecified Gala Cleveland Active [place] right bundle-branch Community block / I45.10(ICD-10) Hospital Repository 11/07/2017 Unknown I45.2 - Bifascicular Gala Cleveland Active [place] block / I45.2(ICD-10) [facility] Repository 08/21/2017 Unknown Z12.31 - Encounter for MalysMarta Active [place] screening mammogram [facility] for malignant neoplasm [facility] breast / Repository Z12.31(ICD-10) 07/05/2017 Unknown N30.00 - Acute Malys, Marta Active [place] cystitis without Community hematuria / Hospital N30.00(ICD-10) Repository 06/15/2017 Unknown R41.0 - Malys, Marta Active [place] Disorientation, Community unspecified / Hospital R41.0(ICD-10) Repository 06/15/2017 Unknown R30.0 - Dysuria / Malys, Marta Active [place] R30.0(ICD-10) [facility] Repository 06/12/2017 Unknown M25.532 - Pain in left EdinMelecio Active [place] wrist / Community M25.532(ICD-10) Hospital Repository 12/24/2010 Active Spondylosis without LEVI ESPINOZA Active [facility] or [facility] Main radiculopathy, lumbar [place] region / Repository M47.816(ICD-10) 12/24/2010 Active Radiculopathy, lumbar LEVI ESPINOZA Active [place] region / Clinic Main M54.16(ICD-10) [place] Repository 08/24/2009 Active Spinal stenosis, LEVI ESPINOZA Active [facility] lumbosacral region / Clinic Main M48.07(ICD-10) [place] Repository 05/12/2017 Unknown R94.39 - Abnormal Kavita Active [place] result of other Joann Cheek [facility] cardiovascular [facility] function study / Repository R94.39(ICD-10) 05/12/2017 Unknown 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, 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 of [facility] anticoagulants / Hospital Z79.01(ICD-10) Repository 05/12/2017 Unknown Z01.818 - Encounter Gaston Walls for other Joann Cheek [facility] preprocedural Hospital examination / Repository Z01.818(ICD-10) 05/10/2017 Unknown R94.31 - Abnormal Damion Alcantar Active [place] electrocardiogram [facility] [ECG] [EKG] / Hospital R94.31(ICD-10) Repository 05/10/2017 Unknown G47.33 - Obstructive Damion Alcantar Active [place] sleep apnea (adult) [facility] (pediatric) / Hospital G47.33(ICD-10) Repository 05/10/2017 Unknown I27.20 - Pulmonary Ortiz Damion Active [place] hypertension, [facility] unspecified / Hospital I27.20(ICD-10) Repository 06/05/2017 Unknown R55 - Syncope and Alcantar Damion Active [place] collapse / R55(ICD-10) [facility] Repository 05/01/2017 Unknown S52.532A - Melecio Toledo Active [place] fracture of left Community radius, initial Hospital encounter for closed Repository fracture / S52.532A(ICD-10) PROCEDURES PROCEDURES No Procedure Records FoundRESULTS RESULTS STRESS TEST ECHO W/ Observed: 05/01/2018 Status: F Source: [place] CONTRAST 5:57 PM [facility] REPOSITORY [facility] Cardiovascular Services [address] [place] [address] Stress Test Echo W/Contrast MR#: [id number] Acct: [id number] Name: VALENCIA HENRY Rep #: [id number] : 1945 72 From: Damion Alcantar MD Primary Care: Marta Perez DO Status: REG CLI Ordering Dr: Damion Alcantar MD Sex: F C Reason For Study: PREOP, CAD/ASHD Stress Results Protocol: Dobutamine Maximum Predicted HR: 146 bpm Target HR: 124 bpm % Maximum Predicted HR: 87 % DurationHeart Rate Stage (mm:ss) (bpm) BP Dose Comment BASELINE 70 151/69 2CC DEFINITY STAGE 1 3:15 70 / 10.001CC DEFINITY, BP DID NOT REGISTER STAGE 2 3:00 85 220/8620.00NO SYMPTOMS STAGE 3 3:28 124 202/9030.002CC DEFINITY, 0.25 MG ATROPINE, NO SYMPTOMS STAGE 4 1:34 127 / 40.00 RECOVERY 102 140/90 1 CC DEFINITY Stress Duration: 11:17 mm:ss Maximum Stress HR: 127 bpm Baseline Echocardiogram Findings The estimated ejection fraction is 65 %. Stress Echo Wall motion Data Resting WM Intermediate WM Stress WM Resting Wall Motion Wall Motion Stress No regional wall motion No regional wall motion abnormalities noted. abnormalities noted. EKG Data Normal intervals are noted. The patient was titrated from 10 mcg to a maximum of 40 mcg of dobutamine during the stress. The maximum heart rate attained was 131 beats per minute. This was 89% of maximum predicted heart rate. During dobutamine infusion, there were no ST or T wave changes noted to suggest ischemia. No clinical angina was noted. Interpretation Summary The estimated ejection fraction is 65 %. Abnormal, adequate, dobutamine echocardiogram. Positive for ischemia by echocardiographic criteria. Patient appeared to develop anteroseptal hypokinesis at peak infusion seen in the parasternal long, parasternal short, and apical four-chamber view. This coincided with rate dependent left bundle branch block. Hypertensive blood pressure response to dobutamine. Rare PVCs during infusion into recovery. Left bundle branch block resolved and reverted back to normal sinus rhythm with incomplete right bundle branch block. Final LVEF of 50%. Difficult echo windows requiring Definity enhancing agent. No complications. The study was technically difficult. Contrast injection was performed. Ordering Physician: Damion Alcantar MD Referring Physician: Damion Alcantar Performed By: Monica Swanson, JEFFREY, RVT 05/01/18 1757 Date Damion Alcantar MD CC: Damion Alcantar MD; Marta Perez DO Date Dictated: 05/01/18 1428 Date Transcribed: 05/01/18 175 Bread Room Hand: Signed PACEMAKER CHECK Observed: 04/23/2018 Status: F Source: [place] 1:03 PM [facility] REPOSITORY [facility] [address] [place] [address] Pacemaker Check Date of Service: 04/19/18 164 MR#: [id number] Acct: [id number] Name: VALENCIA HENRY Rep #: [id number] : 1945 From: Gala Cleveland Age/Sex: 72/F [place] [facility] [place]: Signed Billing Codes PM Device Codes: PM Dev Prog Eval, Dual 04/19/18 1651 <Electronically signed by Gala Cleveland > Date Gala Cleveland 04/23/18 1303<Electronically signed by Damion Alcantar MD> Cosign Signature: Date (if applicable) Damion Alcantar MD CC: LIVER PROFILE Collected: 04/19/2018 Status: F Source: [place] 2:30 PM [facility] REPOSITORY TYPE CODE TESTS RESULT OUT OF RANGE REFERENCE UNITS LAB L501.1500 6.4-8.2 g/dL Normal T PROT 7.5 LAB L501.1800 3.2-5.0 g/dL Normal ALB 3.9 LAB L501.1950 2.2-4.2 g/dL Normal GLOB 3.6 LAB L501.4100 15-37 U/L Normal AST 24 LAB L501.4305 45-117 U/L Normal ALK P 96 LAB L501.4405 13-56 U/L Normal ALT 29 LAB L501.4600 0.20-1.00 mg/dL Normal T BILI 0.40 LAB L501.4700 0.00-0.30 mg/dL Normal D BILI 0.12 Performed By: #### L500.3400, L500.4100 #### [facility] [address] [place], [address] LIPID PROFILE Collected: 04/19/2018 Status: F Source: [place] 2:30 PM [facility] REPOSITORY TYPE CODE TESTS RESULT OUT OF RANGE REFERENCE UNITS LAB L501.4900 200 mg/dL High CHOL 221 Result Comment: <200 mg/dL Desirable 200-240 mg/dL Borderline >240 mg/dL High Risk LAB L501.5000 mg/dL Normal TRIG 63 Result Comment: The drugs N-Acetylcysteine and Metamizole may falsely depress this assay. Serum Triglycerides Reference Interval Normal <150 mg/dL Borderline high 150 - 199 mg/dL High 200 - 499 mg/dL Very High > or = 500 mg/dL LAB L501.6400 mg/dL Normal HDL 68 Result Comment: The drugs N-Acetylcysteine and Metamizole may falsely depress this assay. Reference Range HDL <40 mg/dL Low HDL Cholesterol HDL >or= 60 mg/dL High HDL Cholesterol LAB L501.6500 0-130 mg/dL High LDL 140 LAB L501.6600 5-40 mg/dL Normal VLDL 13 Performed By: #### L500.3400, L500.4100 #### [facility] [address] [place], [address] CARDIOLOGY VISIT Observed: 04/19/2018 Status: F Source: [place] REPORT 1:51 PM [facility] REPOSITORY [facility] [address] [place] [address] OFFICE VISIT Date of Service: 04/19/18 MR#: [id number] Acct: [id number] Name: VALENCIA HENRY Rep #: [id number] : 1945 Provider: Damion Alcantar MD Age/Sex: 72/F [place] [facility] Status: Signed HPI HPI Chief Complaint: Routine f/u Details: Details: VALENCIA HENRY, is a 72 F who presents to the office today for a cardiovascular outpatient follow-up. 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 Her most recent echocardiogram dated 12/21/16 showed normal LV size and function, mild to moderate tricuspid regurgitation, mild MR, RVSP of 46 mmHg. Since her last visit, she has been doing rather well. She denies any chest pain, angina, shortness of breath or dyspnea on exertion. She is taking and tolerating her medicines well. Her main issue is her back, and requires surgery by Dr. Cowart in [place]. She was supposed to have back surgery but then her stress test was abnormal requiring intervention in May 2017. Other than that she is doing fairly well, and her back pain has not appreciably worsened since her intervention. She has not yet had her back surgery as she is waiting to be off of Plavix. She is completely asymptomatic from a cardiac standpoint. In our office today her blood pressure is 120/64, and pulse is 64 and regular. Her lipids as of 05/16/17 show an HDL of 51 and LDL of 126. She is unable to tolerate statins, and is currently on gemfibrozil. Repeat lipids are pending. Intake Vital Signs04/19/18 Height 5 ft 3 in 04/19/18 Weight: 211 lb 04/19/18 Body Mass Index (BMI) 37.3 04/19/18 Blood Pressure 120/64 Intake Visit Reasons: 4 M FU Academic Director Required: No Accompanied by: Is patient in pain?: No Allergies amoxicillin [From Augmentin] Allergy (Intermediate, Verified 04/13/18 10:23) Itching clavulanic acid [From Augmentin] Allergy (Verified 04/13/18 10:23) Itching hydrocodone [From Vicodin] Allergy (Verified 04/13/18 10:23) Itching pregabalin [From Lyrica] Allergy (Verified 04/13/18 10:23) Rash rofecoxib [From Vioxx] Allergy (Verified 04/13/18 10:23) Unknown sulindac [From Clinoril] Allergy (Verified 04/13/18 10:23) Unknown atorvastatin [From Lipitor] Adverse Reaction (Intermediate, Verified 04/13/18 10:23) Arm pain, myalgias Medications Clonazepam [Klonopin] 0.5 mg PO DAILY 12/16/16 [History Confirmed 04/13/18] Mirabegron [Myrbetriq] 50 mg PO DAILY 12/16/16 [History Confirmed 04/13/18] Montelukast [Singulair] 10 mg PO DAILY 12/16/16 [History Confirmed 04/13/18] celecoxib 200 mg capsule 400 mg PO QDAY cap 05/12/17 [History Confirmed 04/13/18] dexlansoprazole 60 mg capsule,biphase delayed release 60 mg PO QDAY 06/05/17 [History Confirmed 04/13/18] aspirin 81 mg chewable tablet 81 mg PO DAILY@0800 tab 06/08/17 [History Confirmed 04/13/18] gemfibrozil 600 mg tablet 600 mg PO QPM #30 tab 06/08/17 [Rx Confirmed 04/13/18] trazodone 100 mg tablet 200 mg PO BID PRN tab 06/08/17 [History Confirmed 04/13/18] clopidogrel 75 mg tablet 75 mg PO QDAY #30 tab 07/07/17 [Rx Confirmed 04/13/18] donepezil 5 mg tablet 5 mg PO DAILY 12/22/17 [History Confirmed 04/13/18] duloxetine 60 mg capsule,delayed release 60 mg PO DAILY cap 12/22/17 [History Confirmed 04/13/18] gabapentin 600 mg tablet 600 mg PO .COMPLEX 12/22/17 [History Confirmed 04/13/18] multivitamin capsule 1 cap PO DAILY 12/22/17 [History Confirmed 04/13/18] tramadol 50 mg tablet 50 mg PO Q6H 12/22/17 [History Confirmed 04/13/18] PFSH Medical History ASHD (arteriosclerotic heart disease) (Chronic 05/15/17) GERD (gastroesophageal reflux disease) (Chronic) Hypercholesteremia (Chronic) Syncope (Chronic) Other secondary pulmonary hypertension (Chronic) Nonrheumatic tricuspid (valve) insufficiency (Chronic) Obstructive sleep apnea (adult) (pediatric) (Chronic) Abnormal electrocardiogram (Chronic) Mobitz type 2 second degree AV block (Chronic) RBBB (right bundle branch block) (Chronic) Bifascicular block (Chronic) H/O: hysterectomy (Inactive) Surgical History Cardiac pacemaker in situ (Chronic 12/19/16) Status post angioplasty with stent (Chronic 05/15/17) History of bilateral total hip arthroplasty (Inactive) History of bilateral total hip arthroplasty (Inactive) gallbladder removal (Inactive) s/p back fusion (Inactive) Family History Father Unknown family medical history Social History Smoking Status: Never smoker alcohol intake: never substance use type: does not use caffeine: Yes Type: coffee what type of physical activity do you participate in: none seatbelt use: always do you feel safe at home: Yes ROS Const Const: Positive for other (Needs back surgery, Dr. Jt Son. Tried last year, got stents.); negative for fatigue, weakness, body ache, fever(s), headache(s), chills, frequent falls, night sweats, daytime sleepiness, difficulty sleeping, excessive sweating, weight gain, weight loss, increased appetite, poor appetite or anorexia Eyes Eyes: Negative for blind spots, loss of peripheral vision, transient loss of vision, blurry vision, change in vision, double vision, floaters, tunnel vision or other ENT ENT: Negative for dizziness, hearing loss, tinnitus, Nosebleed/epistaxis, post nasal drip, lip swelling, tongue swelling, bleeding gums, hoarseness, neck pain, dry mouth, other, headache(s) or balance problems Cardio Chest Pain: No Edema: None Muscle aches with walking: None Resp Respiratory: Negative for SOB with activity, SOB at rest, SOB orthopnea\SOB lying down, Cough, Coughing up blood/hemoptysis, chest congestion, pain on inspiration, snoring, stridor, wheezing, crackles, paroxysmal nocturnal dyspnea or other GI GI: Negative nausea, vomiting, heartburn, constipation, belching, bloating, cramping, vomiting blood/hematemesis, bright, red blood in stools, black,tarry stools, loose stools, Difficulty Swallowing or other : Negative for hematuria, frequent nighttime urination/ nocturia, erectile dysfunction or abnormal vaginal bleeding Musc Musc: Positive for joint pain (low back pain, needs surgery); negative for balance problems, muscle aches/ myalgia or muscle weakness Skin Skin: Negative redness, non-healing lesions, rash, unusual bruising, skin ulcer, wounds, jaundice or other Neuro Neuro: Negative for blurry vision, double vision, dizziness, lightheadedness, near syncope, syncope, orthostatic symptoms, confusion, memory loss, restless legs, vertigo, seizures, lack of coordination, other, weakness, headache(s) or frequent falls Blu Hematologic/Lymphatic: Negative for easy bleeding, easy bruising, enlarged lymph nodes or other Endo Endo: Negative for cold intolerance, heat intolerance, flushing, increased thirst/drinking, increased hunger, hair loss, hair growth, other, fatigue or excessive sweating Psych Psych: Negative for anxiety, depression, thoughts of harming anyone, thoughts of harming yourself, visual hallucinations, panic attacks or audible hallucinations Allergy Allergy/Immunology: Negative for lip swelling, Negative for tongue swelling, Negative for rash, Negative for throat swelling, Negative for hives Cardiology Exam Const Appearance: cooperative, healthy appearing and no acute distress Nutritional Appearance: well nourished Orientation: alert, oriented x3 and oriented to person Head Head: normal to inspection, atraumatic and normocephalic Nose: external nose normal Face and Sinus: face symmetric Mouth: oral mucosae normal Eyes General: appearance normal, both eyes and all related structures Eyelids: eyelids normal Conjunctivae: conjunctivae normal Pupils: PERRL and normal by confrontation EOM: EOM intact bilaterally Neck Neck: normal visual inspection and full ROM Carotids: normal carotid upstroke Chest Chest inspection: normal inspection of the chest Auscultation: Bilateral: Clear to Auscultation Cardio Palpation: normal PMI Rate: regular rate Rhythm: regular rhythm Heart sounds: S1 normal and S2 normal GI GI: normal to inspection, no hepatosplenomegaly and bowel sounds present Neuro General: alert, oriented x3, awake, CN's II-XI intact bilaterally and moves all extremities Skin Skin: no rashes or lesions noted Extremities Pulses: Normal: Right Femoral Pulse, Left Femoral Pulse, Right Dorsalis Pedis Pulse, Left Dorsalis Pedis Pulse, Right Posterior Tibial Pulse, Left Posterior Tibial Pulse, Right Radial Pulse, Left Radial Pulse Lower Extremity Edema: None: Bilateral Psych Psychological: normal affect Assessment AND Plan 1. Status post angioplasty with stent Z95.820 PTCA/PALMA (Promus 3.0 X 12) to mid LAD and PTCA/PALMA (Promus 3.0 X 20) to proximal OM #[address] Alcantar @ [facility] Plan 1. Coronary artery disease: Patient is status post angioplasty and stenting to her LAD in May 2017. She now requires back surgery which will require her to stop her Lasix. Anticipation for her one-year anniversary from her stent, I recommend that she undergo a debridement echocardiogram to evaluate her anterior wall. If this is grossly abnormal for ischemia, she may require a repeat diagnostic coronary angiogram to check our LAD stent. If however it is negative for inducible ischemia either than anterior or other territories, she will be deemed at low risk for noncardiac surgery. In the meantime she will continue her baby aspirin and Plavix. 2. Preoperative cardiovascular examination Z01.810 Plan 2. Perioperative risk stratification: She is awaiting repeat debridement echocardiogram. Her pacemaker appears to be appropriately working. If her stress test is negative for inducible ischemia she will be deemed at low risk for noncardiac surgery. 3. Hyperlipidemia: The patient is pending a lipid profile today. She is intolerant to statins. Continue gemfibrozil. 4. Return office in 6 months. This note was generated using a voice recognition system and there may be incorrect words, spelling or punctuation that were not noted when reviewing the office note prior to saving. Orders Orders: Plan Detail Other Orders Orders: Other Medications Discontinued: Follow Up +6M (Ortiz) Coding Level of Care Code Off vis,est,level 3 Diagnoses Status post angioplasty with stent Z95.820 Preoperative cardiovascular examination Z01.810 Coding Level of Care Code Off vis,est,level 3 Diagnoses Status post angioplasty with stent Z95.820 Preoperative cardiovascular examination Z01.810 Supplemental Info Supplemental Information Labs LDL Cholesterol 126 mg/dL (0-130) 05/16/17 HDL Cholesterol 51 mg/dL (40-) 05/16/17 Triglycerides 103 mg/dL (-199) 05/16/17 VLDL Cholesterol 21 mg/dL (5-40) 05/16/17 Diagnostics Electrocardiogram 05/16/17 Echocardiogram 07/07/14 Stress Echocardiogram 05/10/17 Pacemaker Check 02/21/18 Chest X-Ray 12/20/16 04/19/18 3231 <Electronically signed by Damion Alcantar MD> Date Damion Wan Signature: Date (if applicable) CC: Marta Perez DO PACEMAKER CHECK Observed: 02/22/2018 Status: F Source: [place] 10:40 AM [facility] REPOSITORY [facility] [address] [place], [place] [address] Pacemaker Check Date of Service: 02/21/181744 MR#: [id number] Acct: [id number] Name: VALENCIA HENRY Kaden Rep #: [id number] : 1945 From: Gala Cleveland Age/Sex: 72/F [place] [facility] [place]: Signed Billing Codes PM Device Codes: PM Dev Interrogate (Remot 02/21/18 174 <Electronically signed by Gala Cleveland > Date Gala Cleveland 02/22/18 1040<Electronically signed by Damion Alcantar MD> Soco Signature: Date (if applicable) Damion Alcantar MD CC: CARDIOLOGY VISIT Observed: 12/22/2017 Status: F Source: [place] REPORT 2:39 PM [facility] REPOS[facility] [address] [place], [place] [address] OFFICE VISIT Date of Service: 12/22/17 MR#: [id number] Acct: [id number] Name: VALENCIA HENRY Kaden Rep #: [id number] : 1945 Provider: Damion Alcantar MD Age/Sex: 72/F [place] [facility] [place] Status: Signed HPI HPI Chief Complaint: Routine f/u Details: VALENCIA HENRY, is a 72 F who presents to the office today for a cardiovascular outpatient follow-up. 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 Her most recent echocardiogram dated 12/21/16 showed normal LV size and function, mild to moderate tricuspid regurgitation, mild MR, RVSP of 46 mmHg. Since her last visit, she has been doing rather well. She denies any chest pain, angina, shortness of breath or dyspnea on exertion. She is taking and tolerating her medicines well. Her main issue is her back, and requires surgery by Dr. Cowart in [place]. She was supposed to have back surgery but then her stress test was abnormal requiring intervention in May 2017. Other than that she is doing fairly well, and her back pain has not appreciably worsened since her intervention In our office today her blood pressure is 136/72, and pulse is 68 and regular. Her lipids as of 05/16/17 show an HDL of 51 and LDL of 126. She is unable to tolerate statins, and is currently on gemfibrozil. Repeat lipids are pending. Intake Vital Signs12/22/17 Height 5 ft 3 in 12/22/17 Weight: 216 lb 12/22/17 Body Mass Index (BMI) 38.2 12/22/17 Blood Pressure 120/60 12/22/17 Blood Pressure Location Lt brachial 12/22/17 Blood Pressure Position Sitting Intake Visit Reasons: 6 M FU Allergies amoxicillin [From Augmentin] Allergy (Intermediate, Verified 12/22/17 14:26) Itching clavulanic acid [From Augmentin] Allergy (Verified 12/22/17 14:26) Itching hydrocodone [From Vicodin] Allergy (Verified 12/22/17 14:26) Itching pregabalin [From Lyrica] Allergy (Verified 12/22/17 14:26) Rash rofecoxib [From Vioxx] Allergy (Verified 12/22/17 14:26) Unknown sulindac [From Clinoril] Allergy (Verified 12/22/17 14:26) Unknown atorvastatin [From Lipitor] Adverse Reaction (Intermediate, Verified 12/22/17 14:26) Arm pain, myalgias Medications Clonazepam [Klonopin] 0.5 mg PO DAILY 12/16/16 [History Confirmed 12/22/17] Mirabegron [Myrbetriq] 50 mg PO DAILY 12/16/16 [History Confirmed 12/22/17] Montelukast [Singulair] 10 mg PO DAILY 12/16/16 [History Confirmed 12/22/17] celecoxib 200 mg capsule 400 mg PO QDAY cap 05/12/17 [History Confirmed 12/22/17] dexlansoprazole 60 mg capsule,biphase delayed release 60 mg PO QDAY 06/05/17 [History Confirmed 12/22/17] aspirin 81 mg chewable tablet 81 mg PO DAILY@0800 tab 06/08/17 [History Confirmed 12/22/17] gemfibrozil 600 mg tablet 600 mg PO QPM #30 tab 06/08/17 [Rx Confirmed 12/22/17] trazodone 100 mg tablet 200 mg PO BID PRN tab 06/08/17 [History Confirmed 12/22/17] clopidogrel 75 mg tablet 75 mg PO QDAY #30 tab 07/07/17 [Rx Confirmed 12/22/17] aspirin 81 mg chewable tablet 81 mg PO DAILY 12/22/17 [History Confirmed 12/22/17] donepezil 5 mg tablet 5 mg PO DAILY 12/22/17 [History Confirmed 12/22/17] duloxetine 60 mg capsule,delayed release 60 mg PO DAILY cap 12/22/17 [History Confirmed 12/22/17] gabapentin 600 mg tablet 600 mg PO .COMPLEX 12/22/17 [History Confirmed 12/22/17] multivitamin capsule 1 cap PO DAILY 12/22/17 [History Confirmed 12/22/17] tramadol 50 mg tablet 50 mg PO Q6H 12/22/17 [History Confirmed 12/22/17] PFSH Medical History ASHD (arteriosclerotic heart disease) (Chronic 05/15/17) GERD (gastroesophageal reflux disease) (Chronic) Hypercholesteremia (Chronic) Syncope (Chronic) Other secondary pulmonary hypertension (Chronic) Nonrheumatic tricuspid (valve) insufficiency (Chronic) Obstructive sleep apnea (adult) (pediatric) (Chronic) Abnormal electrocardiogram (Chronic) Mobitz type 2 second degree AV block (Chronic) RBBB (right bundle branch block) (Chronic) Bifascicular block (Chronic) Surgical History Cardiac pacemaker in situ (Chronic 12/19/16) Status post angioplasty with stent (Chronic 05/15/17) H/O: hysterectomy (Inactive) History of bilateral total hip arthroplasty (Inactive) History of bilateral total hip arthroplasty (Inactive) gallbladder removal (Inactive) s/p back fusion (Inactive) Family History Father Unknown family medical history Social History Smoking Status: Never smoker alcohol intake: never substance use type: does not use caffeine: Yes Type: coffee what type of physical activity do you participate in: none seatbelt use: always do you feel safe at home: Yes Cardiology Exam Const Appearance: cooperative, healthy appearing and no acute distress Nutritional Appearance: well nourished Orientation: alert, oriented x3 and oriented to person Head Head: normal to inspection, atraumatic and normocephalic Nose: external nose normal Face and Sinus: face symmetric Mouth: oral mucosae normal Eyes General: appearance normal, both eyes and all related structures Eyelids: eyelids normal Conjunctivae: conjunctivae normal Pupils: PERRL and normal by confrontation EOM: EOM intact bilaterally Neck Neck: normal visual inspection and full ROM Carotids: normal carotid upstroke Chest Chest inspection: normal inspection of the chest Auscultation: Bilateral: Clear to Auscultation Cardio Palpation: normal PMI Rate: regular rate Rhythm: regular rhythm Heart sounds: S1 normal and S2 normal GI GI: normal to inspection, no hepatosplenomegaly and bowel sounds present Neuro General: alert, oriented x3, awake, CN's II-XI intact bilaterally and moves all extremities Skin Skin: no rashes or lesions noted Extremities Pulses: Normal: Right Femoral Pulse, Left Femoral Pulse, Right Dorsalis Pedis Pulse, Left Dorsalis Pedis Pulse, Right Posterior Tibial Pulse, Left Posterior Tibial Pulse, Right Radial Pulse, Left Radial Pulse Lower Extremity Edema: None: Bilateral Psych Psychological: normal affect Assessment AND Plan 1. ASHD (arteriosclerotic heart disease) I25.10 PTCA/PALMA (Promus 3.0 X 12) to mid LAD and PTCA/PALMA (Promus 3.0 X 20) to proximal OM #[address] Alcantar @ [facility] Plan 1. Coronary artery disease: No exertional anginal symptoms at this time. I preference would be for the patient to have one full year of dual antiplatelet therapy with baby aspirin and Plavix followed by to be to be an echocardiogram to risk stratify her for upcoming back surgery. The patient stress test is normal, she will be deemed at low risk for noncardiac surgery. We will make plans for her to undergo back surgery with Dr. Cowart in May 2018. In the meantime she will continue her baby aspirin, Plavix. 2. Hypercholesteremia E78.00 Plan 2. Hyperlipidemia: Unfortunately she is unable to tolerate statins due to muscle aches. Continue gemfibrozil. Will repeat her lipid profile. 3. Return to office in 4 months, at which time we will order a stress test for risk stratification. This note was generated using a voice recognition system and there may be incorrect words, spelling or punctuation that were not noted when reviewing the office note prior to saving. Orders Orders: Plan Detail Other Orders Orders: Follow Up +4M (Ortiz) Coding Level of Care Code Off vis,est,level 3 Diagnoses ASHD (arteriosclerotic heart disease) I25.10 Hypercholesteremia E78.00 Coding Level of Care Code Off vis,est,level 3 Diagnoses ASHD (arteriosclerotic heart disease) I25.10 Hypercholesteremia E78.00 12/22/17 1439 <Electronically signed by Damion Alcantar MD> Date Damion Alcantar MD Cosigner Signature: Date (if applicable) CC: Marta Perez DO PACEMAKER CHECK Observed: 11/06/2017 Status: F Source: [place] 2:48 PM [facility] [address] [place] [address] Pacemaker Check Date of Service: 11/06/17 1118 MR#: [id number] Acct: [id number] Name: VALENCIA HENRY Rep #: [id number] : 1945 From: Gala Cristofer Age/Sex: 71/F [place] [facility] [place] Status: Signed Billing Codes PM Device Codes: PM Dev Prog Eval, Dual 11/06/17 1120 <Electronically signed by Gala Cleveland > Date Gala Cleveland 11/06/17 1448<Electronically signed by aDmion Alcantar MD> Cosigner Signature: Date (if applicable) Damion Alcantar MD CC: PACEMAKER CHECK Observed: 08/28/2017 Status: F Source: [place] 12:20 PM [facility] [address] [place] [address] Pacemaker Check Date of Service: 08/08/17 0738 MR#: [id number] Acct: [id number] Name: VALENCIA HENRY Rep #: [id number] : 1945 From: Gala Cleveland Age/Sex: 71/F [place] [facility] [place] Status: Signed Comments Summary Comments: Remote Dual Chamber Pacemaker Evaluation: See attached scanned remote Latitude report. Remote interrogation shows No MS, AT/AF or VT episodes since 02/01/17. Presenting rhythm shows P synchronous paced @ 68 ppm. SJ=324%. Estimated battery life 8 yrs. Device and lead measurements remain stable. Normal remote PPM function. Pt notified remote transmission received and next f/u appt scheduled for in 3 mos. Device Device Date Interviewed: 08/07/17 Follow-up Location: remote Interview Reason: scheduled follow up Wood [employer]: [email or web address] Name: [employer] MRI Model: L111 Serial #: [id number] Implant Date: 12/19/16 Year(s): 0 Implant Physician: Dr. 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 Right Ventricle: 0.4 msec, Automatic1.5 volts. Billing Codes PM Device Codes: PM Dev Prog Eval, Dual Assessment AND Plan Problems 1. Presence of cardiac pacemaker Z95.0 implanted 2016; 2. Bifascicular block I45.2 3. Right bundle-branch block I45.10 4. Mobitz type 2 second degree AV block I44.1 s/p dual chamber pacemaker placement 2016; 5. Atrioventricular block, second degree I44.1 6. Syncope R55 08/23/17 1316 <Electronically signed by Gala Cleveland > Date Gala Cleveland 08/28/17 1220<Electronically signed by Damion Alcantar MD> [facility] Signature: Date (if applicable) Damion Alcantar MD CC: SCREENING MAMM (CAD), Observed: 08/21/2017 Status: F Source: [place] 1:53 PM [facility] REPOSITORY [facility] [address] [place] [address] SCREENING MAMM (CAD), BILAT MR#: [id number] Acct: [id number] Name: VALENCIA HENRY Rep #: [id number] : 1945 F 71 From: Walt Mar MD PCP: Marta Perez DO Status: REG CLI Study: SCREENING MAMM (CAD), BILAT Date of Exam: 08/21/17 Exam# [id number] Ordering Dr: Marta Perez DO MAMMOGRAPHY - BILATERAL SCREENING REASON FOR EXAM: Female, 71 years old. Routine annual screening examination. PERTINENT HISTORY: Non-contributory. TECHNIQUE: Digital bilateral breast vijaya (3D mammographic acquisition) in the CC and MLO projections. 2-D mediolateral oblique (MLO) and craniocaudad (CC) views of both breasts were obtained. CAD: Full Field Digital Mammography with Computer Added Detection was performed. COMPARISON: Comparison is made with prior study dated July 15, 2016 and July 01, 2015. FINDINGS: Breast Composition: The breasts are heterogeneously dense, which may obscure small masses. There are no dominant masses or suspicious calcifications. No other significant abnormalities are identified. There has been no significant change since the prior study. BI/SCREENING MAMM (CAD), BILAT IMPRESSION: Stable bilateral screening mammogram. Yearly follow-up mammogram recommended. (A) ASSESSMENT CATEGORY: BIRADS Category 1: Negative. A letter regarding these results will be sent to the patient by the facility within 30 days. Approximately 10% of breast cancers are not detected by mammography. A normal mammogram should not delay biopsy of a clinically suspicious abnormality. [id number] Electronically Signed: Walt Mar MD at 15:24 EDT Tel [phone], Service support , CC: Marta Perez DO Bread Room Hand: Signed Observed: 07/04/2017 Status: F Source: [place] CULTURE, URINE 3:04 PM [facility] REPOSITORY Urine Culture Probable skin contaminants Below infection level. ORGANISM 1: Mixed Gram Positive Organisms Beltrami Count 1000-10,000 MIX CULTURE Mixed contaminants. Submit a new specimen if indicated. Performed By: #### M100.0650 #### [facility] [address] [place], [address] ORTHOPEDIC VISIT Observed: 06/19/2017 Status: F Source: [place] REPORT 1:11 PM [facility] REPOSIT[facility] [address] [place] [address] [address] [place] [address] OFFICE VISIT Date of Service: 06/12/17 MR#: [id number] Acct: [id number] Name: VALENCIA HENRY Rep #: [id number] : 1945 Provider: Melecio Jesus DO Age/Sex: 71/F [place] [facility] [place] [place] Status: Signed Intake Intake Visit Reasons: left wrist Is patient in pain?: No Allergies acetaminophen [From Vicodin] Allergy (Verified 05/22/17 14:45) Itching amoxicillin [From Augmentin] Allergy (Verified 05/22/17 14:45) Unknown atorvastatin [From Lipitor] Allergy (Verified 05/22/17 14:45) Arm pain clavulanic acid [From Augmentin] Allergy (Verified 05/22/17 14:45) Itching hydrocodone [From Vicodin] Allergy (Verified 05/22/17 14:45) Itching pregabalin [From Lyrica] Allergy (Verified 05/22/17 14:45) Rash rofecoxib [From Vioxx] Allergy (Verified 05/22/17 14:45) Unknown sulindac [From Clinoril] Allergy (Verified 05/22/17 14:45) Unknown Medications Clonazepam [Klonopin] 0.5 mg PO DAILY 12/16/16 [History Confirmed 06/05/17] Duloxetine Hcl [Cymbalta] 120 mg PO DAILY 12/16/16 [History Confirmed 06/05/17] Gabapentin [Neurontin] 600 mg PO BIDCM 12/16/16 [History Confirmed 06/05/17] Mirabegron [Myrbetriq] 50 mg PO DAILY 12/16/16 [History Confirmed 06/05/17] Montelukast [Singulair] 10 mg PO DAILY 12/16/16 [History Confirmed 06/05/17] Oxygen, Home [Home Oxygen] 2 lpm NASAL QHS 12/16/16 [History Confirmed 06/05/17] Trospium Chloride [Sanctura Xr] 60 mg PO DAILY 12/16/16 [History Confirmed 06/05/17] celecoxib 200 mg capsule 400 mg PO QDAY cap 05/12/17 [History Confirmed 06/08/17] clopidogrel 75 mg tablet 75 mg PO QDAY #34 tab 05/12/17 [Rx Confirmed 06/08/17] dexlansoprazole 60 mg capsule,biphase delayed release 60 mg PO QDAY 06/05/17 [History Confirmed 06/05/17] aspirin 81 mg chewable tablet 81 mg PO DAILY@0800 tab 06/08/17 [History Confirmed 06/08/17] gemfibrozil 600 mg tablet 600 mg PO QPM #30 tab 06/08/17 [Rx Confirmed 06/08/17] trazodone 100 mg tablet 200 mg PO BID PRN tab 06/08/17 [History Confirmed 06/08/17] PFSH Medical History ASHD (arteriosclerotic heart disease) (Chronic) Presence of normal functioning cardiac pacemaker (Chronic) GERD (gastroesophageal reflux disease) (Chronic) Hypercholesteremia (Chronic) Syncope (Chronic) Other secondary pulmonary hypertension (Chronic) Nonrheumatic tricuspid (valve) insufficiency (Chronic) Obstructive sleep apnea (adult) (pediatric) (Chronic) Abnormal electrocardiogram (Chronic) Mobitz type 2 second degree AV block (Chronic) RBBB (right bundle branch block) (Chronic) Bifascicular block (Chronic) Surgical History Status post angioplasty with stent (Chronic) Pacemaker (Chronic 12/19/16) H/O: hysterectomy (Inactive) History of bilateral total hip arthroplasty (Inactive) History of bilateral total hip arthroplasty (Inactive) gallbladder removal (Inactive) s/p back fusion (Inactive) Family History Father Unknown family medical history Social History Smoking Status: Never smoker alcohol intake: never substance use type: does not use caffeine: Yes Type: coffee what type of physical activity do you participate in: none seatbelt use: always do you feel safe at home: Yes HPI left wrist: Details: VALENCIA HENRY is a 71 year old F here today for a followup on her left wrist. She states that she is doing well and is wearing her splint at all times. She denies taking any pain medications. Patient has no swelling and is able to move her fingers with no pain. Denies numbness, tingling or other associated symptoms. ROS Const Reports system reviewed and no additional complaints, except as docu Eyes Reports system reviewed and no additional complaints, except as docu ENT Reports system reviewed and no additional complaints, except as docu Card Reports system reviewed and no additional complaints, except as docu Resp Reports system reviewed and no additional complaints, except as docu GI Reports system reviewed and no additional complaints, except as docu Reports system reviewed and no additional complaints, except as docu Musc Reports stiffness Skin/Breast Reports system reviewed and no additional complaints, except as docu Neuro Yes system reviewed and no additional complaints, except as docu Psych Reports system reviewed and no additional complaints, except as docu Endo Reports system reviewed and no additional complaints, except as docu Ortho Exam Right Wrist/Hand Skin/Wound: Yes Swelling Left Wrist/Hand Skin/Wound: Yes Swelling Contralateral Normal: Yes A1 rosi trigger: No Motor: EPL: 5, FDP-2: 5, 1st Dorsal Interosseous: 5, APB: 5 Sensation: Radial: I, Ulnar: I, Median: I WRIST: Alert and oriented 3 in no acute distress. Appropriate eye contact and affect. Otherwise intact from C5-T2 distributions. She has positive pulses. Motor function is intact. She shows some mild ulnar positive variance as expected from her radiographs. Otherwise currently nontender palpation across the fracture sites. Mildly tender palpation across the tendons as expected. X-rays: Evaluate myself patient-patient shows a dorsally angulated but healing distal radius fracture with some mild positive ulnar variance. Patient has a nonunion to her ulnar styloid fracture as expected. Otherwise healing accordingly Assessment AND Plan Problems 1. Colles' fracture of left radius, subsequent encounter for closed fracture with routine healing S52.763D Plan Assessment: After orthopedic status post closed treatment for left distal radius Colles' fracture and associated ulnar styloid fracture.. Healing. Plan: Continue with wrist brace as needed for heavy lifting. Start more range of motion exercises. OT prescription be provided. Right this point time I think patient's fracture is stable on just needs and continued healing. I do not think that we would need to perform any further radiographs unless there is a change in patient's presentation. Start OT follow-up with me in 6 weeks as needed. Major issues Orders Orders: Coding Level of Care Code Global Post Op Diagnoses Colles' fracture of left radius, subsequent encounter for closed fracture with routine healing S52.532D 06/19/17 1311 <Electronically signed by Melecio Jesus DO> Date Melecio Jesus DO Cosigner Signature: Date (if applicable) CC: Observed: 06/15/2017 Status: F Source: [place] CULTURE, URINE 2:20 PM [facility] REPOSITORY Urine Culture ORGANISM 1: Klebsiella pneumoniae sp pneum Bel[place]ami Count >100,000 Klebsiella pneumoniae sp pneum: REACTION Amoxacillin/Clavulanic Acid $ <=2 S Ampicillin $ 16 R Ampicillin/Sulbactam $ 4 S Cefazolin $ <=4 S Cefepime $ <=1 S Ceftriaxone $ <=1 S Ciprofloxacin $ <=0.25 S ESBL - Ertapenim $$$ <=0.5 S Gentamicin $ <=1 S Imipenem *NF <=0.25 S Levofloxacin $ <=0.12 S Nitrofurantoin $ 32 S Piperacillin/Tazobactam $$ <=4 S Tobramycin $ <=1 S Trimethoprim/Sulfametho $ <=20 S (NF) indicates non-formulary drug at [facility]. Approval by Infectious Disease Specialist required before non-formulary drugs may be ordered and/or dispensed. Performed By: #### [id number] #### [facility] [address] [place] [place], [address] WRIST MIN 3 VIEWS Observed: 06/12/2017 Status: F Source: [place] 12:57 PM [facility] REPOSITORY [facility] Imaging Services [address] [place] [address] Wrist min 3 Views MR#: [id number] Acct: [id number] Name: VALENCIA HENRY Rep #: [id number] : 1945 F 71 From: Walker Hunter MD PCP: Marta Perez DO Status: REG CLI Study: Wrist min 3 Views Date of Exam: 06/12/17 Exam# [id number] Ordering Dr: Melecio Jesus DO STUDY: X-RAY - LEFT WRIST REASON FOR EXAM: Fracture. TECHNIQUE: 3 view(s) of the wrist were obtained. COMPARISON: Radiographs 05/22/2017. FINDINGS: There is osteopenia. There is no change in alignment and position of the mildly impacted and mildly dorsal angulated healing fracture of the distal radius. There is an ulnar styloid process avulsion. Normal radiocarpal articulation. Normal distal radioulnar articulation. Normal carpal bones. There is joint space narrowing of the triscaphe articulation. There is joint space narrowing of the carpometacarpal articulation of the thumb. Normal second through fifth carpometacarpal articulations. Normal visualized metacarpal bones. There is a small soft tissue calcification ulnar to the distal ulnar diaphysis. RAD/Wrist min 3 Views IMPRESSION: No significant change of the healing distal radial fracture. Electronically Signed: Walker Hunter MD at 14:57 EST Tel , Service support , CC: Marta Perez DO; Melecio Jesus DO Bread Room Hand: Signed CARDIOLOGY VISIT Observed: 06/12/2017 Status: F Source: [place] REPORT 10:17 AM [facility] REPOSITORY [facility] [address] [place] [address] OFFICE VISIT Date of Service: 06/08/17 MR#: [id number] Acct: [id number] Name: VALENCIA HENRY Rep #: [id number] : 1945 Provider: MONA Vale Age/Sex: 71/F [place] [facility] [place] Status: Signed HPI HPI Details: VALECNIA HENRY, is a 71 F who presents to the office today for a cardiovascular outpatient follow-up. 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 Pt. denies chest, arm, jaw, or neck discomfort. Her exercise tolerance is stable though limited d/t chronic back pain. Pt. denies symptoms of CHF, palpitations, lightheadedness, dizziness, near syncope, or syncopal episodes. Pt. denies edema or claudication issues. Pt. denies orthopnea, PND, fever, chills, blood in urine, blood in stool, myalgia, or unexplainable fatigue. 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: No Accompanied by: Is patient in pain?: No Allergies acetaminophen [From Vicodin] Allergy (Verified 05/22/17 14:45) Itching amoxicillin [From Augmentin] Allergy (Verified 05/22/17 14:45) Unknown atorvastatin [From Lipitor] Allergy (Verified 05/22/17 14:45) Arm pain clavulanic acid [From Augmentin] Allergy (Verified 05/22/17 14:45) Itching hydrocodone [From Vicodin] Allergy (Verified 05/22/17 14:45) Itching pregabalin [From Lyrica] Allergy (Verified 05/22/17 14:45) Rash rofecoxib [From Vioxx] Allergy (Verified 05/22/17 14:45) Unknown sulindac [From Clinoril] Allergy (Verified 05/22/17 14:45) Unknown Medications Clonazepam [Klonopin] 0.5 mg PO DAILY 12/16/16 [History Confirmed 06/05/17] Duloxetine Hcl [Cymbalta] 120 mg PO DAILY 12/16/16 [History Confirmed 06/05/17] Gabapentin [Neurontin] 600 mg PO BIDCM 12/16/16 [History Confirmed 06/05/17] Mirabegron [Myrbetriq] 50 mg PO DAILY 12/16/16 [History Confirmed 06/05/17] Montelukast [Singulair] 10 mg PO DAILY 12/16/16 [History Confirmed 06/05/17] Oxygen, Home [Home Oxygen] 2 lpm NASAL QHS 12/16/16 [History Confirmed 06/05/17] Trospium Chloride [Sanctura Xr] 60 mg PO DAILY 12/16/16 [History Confirmed 06/05/17] celecoxib 200 mg capsule 400 mg PO QDAY cap 05/12/17 [History Confirmed 06/08/17] clopidogrel 75 mg tablet 75 mg PO QDAY #34 tab 05/12/17 [Rx Confirmed 06/08/17] dexlansoprazole 60 mg capsule,biphase delayed release 60 mg PO QDAY 06/05/17 [History Confirmed 06/05/17] aspirin 81 mg chewable tablet 81 mg PO DAILY@0800 tab 06/08/17 [History Confirmed 06/08/17] gemfibrozil 600 mg tablet 600 mg PO QPM #30 tab 06/08/17 [Rx Confirmed 06/08/17] trazodone 100 mg tablet 200 mg PO BID PRN tab 06/08/17 [History Confirmed 06/08/17] Ejection fraction %: 65 to 70 PFSH Medical History ASHD (arteriosclerotic heart disease) (Chronic) Presence of normal functioning cardiac pacemaker (Chronic) GERD (gastroesophageal reflux disease) (Chronic) Hypercholesteremia (Chronic) Syncope (Chronic) Other secondary pulmonary hypertension (Chronic) Nonrheumatic tricuspid (valve) insufficiency (Chronic) Obstructive sleep apnea (adult) (pediatric) (Chronic) Abnormal electrocardiogram (Chronic) Mobitz type 2 second degree AV block (Chronic) RBBB (right bundle branch block) (Chronic) Bifascicular block (Chronic) Surgical History Status post angioplasty with stent (Chronic) Pacemaker (Chronic 12/19/16) H/O: hysterectomy (Inactive) History of bilateral total hip arthroplasty (Inactive) History of bilateral total hip arthroplasty (Inactive) gallbladder removal (Inactive) s/p back fusion (Inactive) Family History Father Unknown family medical history Social History Smoking Status: Never smoker alcohol intake: never substance use type: does not use caffeine: Yes Type: coffee what type of physical activity do you participate in: none seatbelt use: always do you feel safe at home: Yes ROS Const Const: Negative for fatigue, weakness, body ache, fever(s) or chills ENT ENT: Negative for dizziness Cardio Chest Pain: No Palpitations: No Edema: None Muscle aches with walking: None Resp Respiratory: Negative for SOB with activity, SOB at rest, SOB orthopnea\SOB lying down or paroxysmal nocturnal dyspnea GI GI: Negative nausea, black,tarry stools, bright, red blood in stools or vomiting blood/hematemesis : Negative for hematuria or frequent nighttime urination/ nocturia Musc Musc: Negative for muscle aches/ myalgia Neuro Neuro: Negative for weakness, dizziness, lightheadedness, near syncope, syncope or orthostatic symptoms Endo Endo: Negative for fatigue Supplemental Info Heart catheterization from May 2017 resulted and PTCA/PALMA to mid LAD and proximal OM #1. It was recommended the patient undergo 6 months of DAPT prior to back surgery and repeat dobutamine echo prior to surgery. Stress echocardiogram from April 2017 was positive for ischemia by echocardiographic criteria. Reported ejection fraction was 65%. Pacemaker/ICD check from 2018 showed atrial burden of 0%, no NSVT episodes, and battery longevity approximately 8.5 years. Echocardiogram from December 2016 showed estimated ejection fraction 65%, stage I diastolic dysfunction, mildly dilated right ventricle, mild posterior directed mitral valve insufficiency, mild to moderate tricuspid valve insufficiency, RVSP of 46 mmHg, moderate pulmonary hypertension, and was compared to previous echo no appreciable changes noted. Assessment AND Plan 1. ASHD (arteriosclerotic heart disease) I25.10 PTCA/PALMA to mid LAD and proximal OM #1 in May 2017; Plan - ELIJAH Selby Patient denies any chest pain, arm pain, jaw pain, neck pain, shortness of breath, or fatigue suggestive of angina at this time. We will continue to monitor this. We will not make any medication regimen changes and will continue risk factor modification. Patient is hoping to talk to cardiac rehab again, but is unsure if she can complete/participate in cardiac rehab due to chronic back pain. Per heart catheterization documentation patient has been intolerant to beta blockers and MATILDA inhibitors and statin medication in the past. She will continue with aspirin and Plavix. Orders Orders: 2. Mobitz type 2 second degree AV block I44.1 s/p dual chamber pacemaker placement 2016; Plan - ELIJAH Selby Patient is status post biventricular pacemaker for this. Pacemaker/ICD check from 2018 showed atrial burden of 0%, no NSVT episodes, and battery longevity approximately 8.5 years. We will continue to monitor this. 3. Presence of cardiac pacemaker Z95.0 implanted 2016; Plan - ELIJAH Selby Patient's pacemaker/ICD appears to be functioning appropriately. We will continue to monitor this with routine/scheduled follow-ups. 4. Chronic low back pain, unspecified back pain laterality, with sciatica presence unspecified M54.5; G89.29 Plan - ELIJAH Selby Patient was hoping to undergo back surgery, which prompted dobutamine stress test. Due to recent stenting, she will have to remain on anticoagulation for ideally 1 year, but perhaps 6 months. This will be addressed at next office visit in regards to possible discontinuation of antiplatelet therapy and repeat dobutamine stress echo for back surgery. 5. Hypercholesteremia E78.00 Plan - ELIJAH Selby Laboratory Tests Triglycerides 103 Cholesterol 198 LDL Cholesterol 126 HDL Cholesterol 51 Patient has been intolerant to statin medication in the past. She will be started on gemfibrozil and have her cholesterol checked in approximately 1-2 months. We will wait for results of this test for further recommendation. Orders Orders: Plan Detail Other Orders Orders: Other Medications New: Additional Comments - ELIJAH Selby Discussed the above patient with Dr. Alcantar, he agrees with the plan of care. Thank you for allowing us to participate in the patients plan of care, if you have any questions please do not hesitate to call. This note was generated using a voice recognition system and there may be incorrect words, spelling or punctuation that were not noted when reviewing the office note prior to saving. Coding Level of Care Code Off vis,est,level 3 Diagnoses ASHD (arteriosclerotic heart disease) I25.10 Mobitz type 2 second degree AV block I44.1 Presence of cardiac pacemaker Z95.0 Chronic low back pain, unspecified back pain laterality, with sciatica presence unspecified M54.5; G89.29 Back pain location: low back pain Back pain laterality: unspecified Sciatica presence: unspecified whether sciatica present Hypercholesteremia E78.00 Coding Level of Care Code Off vis,est,level 3 Diagnoses ASHD (arteriosclerotic heart disease) I25.10 Mobitz type 2 second degree AV block I44.1 Presence of cardiac pacemaker Z95.0 Chronic low back pain, unspecified back pain laterality, with sciatica presence unspecified M54.5; G89.29 Back pain location: low back pain Back pain laterality: unspecified Sciatica presence: unspecified whether sciatica present Hypercholesteremia E78.00 06/08/17 1218 <Electronically signed by Heriberto Vale PLASTER DIE MAKER-C> Date Heriberto Vale PLASTER DIE MAKER-C 06/12/17 1017<Electronically signed by Damion Alcantar MD> Cosigner Signature: Date (if applicable) Damion Alcantar MD CC: Marta Perez DO ORTHOPEDIC VISIT Observed: 05/31/2017 Status: F Source: [place] REPORT 7:53 AM [facility] REPOSITORY [facility] [address] [place] [id number] OFFICE VISIT Date of Service: 05/22/17 MR#: [id number] Acct: [id number] Name: VALENCIA HENRY Rep #: [id number] : 1945 Provider: Melecio Jesus DO Age/Sex: 71/F [place] [facility] [place] Status: Signed Intake Intake Visit Reasons: LEFT WRIST Is patient in pain?: Yes Pain scale (1-10): 2 Allergies acetaminophen [From Vicodin] Allergy (Verified 05/22/17 14:45) Itching amoxicillin [From Augmentin] Allergy (Verified 05/22/17 14:45) Unknown atorvastatin [From Lipitor] Allergy (Verified 05/22/17 14:45) Arm pain clavulanic acid [From Augmentin] Allergy (Verified 05/22/17 14:45) Itching hydrocodone [From Vicodin] Allergy (Verified 05/22/17 14:45) Itching pregabalin [From Lyrica] Allergy (Verified 05/22/17 14:45) Rash rofecoxib [From Vioxx] Allergy (Verified 05/22/17 14:45) Unknown sulindac [From Clinoril] Allergy (Verified 05/22/17 14:45) Unknown Medications Clonazepam [Klonopin] 0.5 mg PO DAILY 12/16/16 [History Confirmed 05/22/17] Duloxetine Hcl [Cymbalta] 120 mg PO DAILY 12/16/16 [History Confirmed 05/22/17] Fentanyl [Duragesic] 50 mcg TRANSDERM. Q72H 12/16/16 [History Confirmed 05/22/17] Gabapentin [Neurontin] 600 mg PO BIDCM 12/16/16 [History Confirmed 05/22/17] Mirabegron [Myrbetriq] 50 mg PO DAILY 12/16/16 [History Confirmed 05/22/17] Montelukast [Singulair] 10 mg PO DAILY 12/16/16 [History Confirmed 05/22/17] Oxygen, Home [Home Oxygen] 2 lpm NASAL QHS 12/16/16 [History Confirmed 05/22/17] TraMADol [Ultram] 50 mg PO Q6H PRN PRN 12/16/16 [History Confirmed 05/22/17] Trospium Chloride [Sanctura Xr] 60 mg PO DAILY 12/16/16 [History Confirmed 05/22/17] celecoxib 200 mg capsule 400 mg PO QDAY cap 05/12/17 [History Confirmed 05/22/17] clopidogrel 75 mg tablet 75 mg PO QDAY #34 tab 05/12/17 [Rx Confirmed 05/22/17] Aspirin [Aspirin, Baby] 324 mg PO DAILY@0800 05/15/17 [History Confirmed 05/22/17] PFSH Medical History ASHD (arteriosclerotic heart disease) (Acute) Presence of normal functioning cardiac pacemaker (Chronic) GERD (gastroesophageal reflux disease) (Chronic) Hypercholesteremia (Chronic) Syncope (Chronic) Other secondary pulmonary hypertension (Chronic) Nonrheumatic tricuspid (valve) insufficiency (Chronic) Obstructive sleep apnea (adult) (pediatric) (Chronic) Abnormal electrocardiogram (Chronic) Mobitz type 2 second degree AV block (Chronic) RBBB (right bundle branch block) (Chronic) Bifascicular block (Chronic) Surgical History Status post angioplasty with stent (Acute) Pacemaker (Chronic 12/19/16) H/O: hysterectomy (Inactive) History of bilateral total hip arthroplasty (Inactive) History of bilateral total hip arthroplasty (Inactive) gallbladder removal (Inactive) s/p back fusion (Inactive) Family History Father Unknown family medical history Social History Smoking Status: Never smoker alcohol intake: never substance use type: does not use caffeine: Yes Type: coffee what type of physical activity do you participate in: none seatbelt use: always do you feel safe at home: Yes HPI LEFT WRIST: Details: VALENCIA HENRY is a 71 year old F here today for f/u left wrist fracture, she presents in short arm cast that is in clean dry good condition. 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 Denies numbness, tingling or other associated symptoms. ROS Const Reports system reviewed and no additional complaints, except as docu Eyes Reports system reviewed and no additional complaints, except as docu ENT Reports system reviewed and no additional complaints, except as docu Card Reports system reviewed and no additional complaints, except as docu Resp Reports system reviewed and no additional complaints, except as docu GI Reports system reviewed and no additional complaints, except as docu Musc Reports joint pain, Reports joint swelling, Reports limited joint movement, Reports stiffness, Reports as per HPI Skin/Breast Reports system reviewed and no additional complaints, except as docu Neuro Yes system reviewed and no additional complaints, except as docu Psych Reports system reviewed and no additional complaints, except as docu Endo Reports system reviewed and no additional complaints, except as docu Ortho Exam Left Wrist/Hand Contralateral Normal: Yes A1 rosi trigger: No Left Wrist: Yes ROM-Extension 0-60 (45), Yes ROM-Flexion 0- 80 (25) and Yes ROM-Pronation 0-80 (45/45) Motor: EPL: 5, FDP-2: 5, 1st Dorsal Interosseous: 5, APB: 5 Sensation: Radial: I, Ulnar: I, Median: I WRIST: X-rays: Evaluated myself patient-patient has good callus formation both dorsally and volarly. Overall wrist height is good her angulation is obviously maintained in the apex volar with about 50 of dorsal angulation. Otherwise stable at this point time. Assessment AND Plan Problems 1. Colles' fracture of left radius, subsequent encounter for closed fracture with routine healing S52.532D Plan Assessment: Left distal radius fracture healing well. Plan: At this point time the patient will be placed into a cockup splint for an additional 3 weeks and have her come back for 1 set x-rays at that point time. We have discussed previously about the angulation whether or not operative intervention versus a closed reduction would be warranted. The patient wanted to simply proceed with closed reduction treatment. This point time she remains stable. I think at her age that she will do well in the face of the dorsal angulation. It is her nondominant hand. X-rays at next. Any issues return. Orders Orders: Coding Level of Care Code Global Post Op Diagnoses Colles' fracture of left radius, subsequent encounter for closed fracture with routine healing S52.532D 05/31/17 0753 <Electronically signed by Melecio Jesus DO> Date Melecio Jesus DO Cosigner Signature: Date (if applicable) CC: PROGRESS Observed: 05/26/2017 Status: COMPLETED Source: [place] 2:23 PM [facility] REPOSITORY O ID: [id number] Author: Levi Espinoza Service: (none) Author Type: Physician Type: Progress Notes Filed: 05/26/2017 3:31 PM Note Text: [facility] OFF[facility] NOTE DATE: May 26, 2017 Chief Complaint: chronic lower back SUBJECTIVE: Ms. Henry [facility] for a follow up appointment regarding chronic lower back pain. She states that since the last visit symptoms have been stable. The pain is located in the low back lumbar region and radiates down the posterior leg. The pain is described as radiating and severe and is rated as 8 on a scale of 0-10. The patient Reports numbness and leg pain. Symptoms interfere with physical activity, work, sexual relations, walking, sleeping, sitting, bathing, driving, cooking, household cleaning, reaching for shelves and lifting. The pain is exacerbated by standing, forward flexion and walking. The pain is mitigated by lying down. . She is currently receiving medications through the [facility]. She is not having difficulty with her [facility] medications. The medications are partially effective. The patient states the last dose of . Trazodone was taken at May 26, 2017. REVIEW OF SYSTEMS: Constitutional: (-) Fever (-) Night Sweats (-) Weight Gain (-) Weight Loss (-) Fatigue Cardiovascular: (-) Chest Pain (-) Palpitations (-) Lightheadedness (-) Swelling of Ankles (-) Hx Heart Surgery Respiratory: (-) Shortness of Breath (-) Cough (-) Wheezing (+) Snoring Gastrointestinal: (-) Incontinence (-) Abdominal Pain (-) Diarrhea (-) Constipation (-) Nausea/Vomiting (-) Heart Burn Endocrine: (-) Thyroid Disorder (-) Diabetes Hematologic: (-) Prolonged Bleeding (-) Easy Bruising Genitourinary: (-) Incontinence (-) Frequency (-) Urinary Urgency Skin: (-) Rashes (-) Itching (-) Other Lesions Neurologic: (-) Headache (-) Double Vision (-) Confusion (-) Paralysis Psychiatric: (-) Depression (-) Anxiety (-) Delusions (-) Hallucinations (-) Personal History of Alcohol or Substance Abuse (-) Family History of Alcohol or Substance Abuse PAST MEDICAL HISTORY Diagnosis Date - Depression - Fracture - GERD (gastroesophageal reflux disease) - Low back pain - Osteoarthrosis, unspecified whether generalized or localized, other specified sites knees and hips- had replacements - Snoring - Syncope PAST SURGICAL HISTORY Procedure Laterality Date - APPENDECTOMY 1959 - CARPAL TUNNEL - PAST SURGICAL HISTORY OF foot surgery for bone spurs,arches in the - PAST SURGICAL HISTORY OF total hip replacements 1999 and 2001- [facility] - PAST SURGICAL HISTORY OF bilateral total knee replacements 2004 - PAST SURGICAL HISTORY OF 2008 laminectomy spinal stenosis - REMOVAL GALLBLADDER 1990 - TOTAL ABDOM HYSTERECTOMY 1986 ALLERGIES Allergen Reactions - Clinoril [Sulindac] GI Upset - Demerol [Meperidine* Itching - Flexeril [Cyclobenz* Itching - Vicodin [Hydrocodon* Itching Itches if takes as directed- can tolerate 1/2 pill at times - Vioxx [Rofecoxib] GI Upset - Wellbutrin [Bupropi* Other: See Comments Swelling of tongue, lips, cheeks Current Outpatient Prescriptions: mirabegron (MYRBETRIQ) 50 mg Tb24 Take by mouth once daily. gabapentin (NEURONTIN) 600 mg tablet Take 1 tablet by mouth three times daily. Takes 1/2 AM and 1 HS DEXILANT 60 mg CpDM DULoxetine (CYMBALTA) 60 mg capsule Take 60 mg by mouth twice daily. celecoxib (CELEBREX) 200 mg capsule Take 200 mg by mouth twice daily. traZODONE 100 mg ORAL tablet Take by mouth. Takes two at bedtime montelukast (SINGULAIR) 10 mg ORAL tablet Take 1 tablet by mouth daily at bedtime. clonazePAM (KLONOPIN) 0.5 mg ORAL tablet Take 1 tablet by mouth at bedtime as needed. trospium chloride(SANCTURA XR 60 MG 24 HR CAP) Take one(1) tablet daily. No current facility-administered medications for this visit. I have reviewed the nurses notes and I am aware of the family/social history. Since the last evaluation the medical history has not changed. PHYSICAL EXAMINATION: Vitals: Pulse 81 Wt 200 lb (90.7kg) SpO2 95% Performed in conjunction with observation. The patient is alert and oriented x3. The patient is in no acute distress. Station and Gait: flexed posture and gait using a cane Lungs: normal respiratory rate and rhythm. Cardiovascular: regular rate. Neck: Supple. The range of motion is intact. Back: Range of motion of the trunk was generally intact. Spine: diffuse L-S tenderness Extremities: no reported edema or erythema. Motor: Exhibits full strength in all four extremities. ASSESSMENT: Pt reports lower back pain, denies radicular sxs Encounter Diagnosis ICD-10-CM 1. Lumbar radiculopathy M54.16 2. Lumbar spondylosis M47.816 3. Stenosis of lumbosacral spine M48.07 OARRS website checked and validated. All prescriptions have been APPROPRIATELY filled. No suspicious activity was identified.- 05/26/2017 by Gabby Frey Ma Narcotic Agreement reviewed and signed?: N/A on May 26, 2017 The pain panel was N/A PLAN: Prior available imaging studies were reviewed. Findings were discussed. Injection history was reviewed. Medication use and compliance were reviewed. 1. Continue medication management through the patient's current prescribing physician 2. No medication at this time 3. Interventional procedure options discussed. None. Patient is now on Plavix 4. Encouraged regular home exercise program. 5) F/U in 6 months The treatment plan was discussed with the patient during the office visit and they verbalized an understanding of it. The patient was seen and discussed with Nicky Christine CNP. The patient's progress has been reviewed and discussed with the patient. All questions were addressed and answered. Agree with the plan as outlined above. Levi Espinoza MD cc: Dr. Marta Perez DO cc: Marta Perez DO [address] [facility] [address] [facility] [address] Results of consultation to be transmitted via electronic medical record for those providers who practice within [facility] or with access to [employer] via [facility], or via letter. 12 LEAD ELECTROCARDIOGRAM Observed: 05/22/2017 Status: F Source: [place] 2:13 PM [facility] REPOSITORY [facility] Cardiovascular Services [address] [place] [address] 12 Lead EKG 05/16/17 0512 MR#: [id number] Acct: [id number] Name: VALENCIA HENRY Rep #: [id number] : 1945 71 From: Levi Stroud MD Attending Dr: Damion Alcantar MD Status: [facility] Ordering Dr: Damion Alcantar MD Date: 05/16/17 Location: [facility] Sex: F C Admitted: Test Reason : AM EKG Blood Pressure : / mmHG Vent. Rate : 073 BPM Atrial Rate : 073 BPM P-R Int : 188 ms QRS Dur : 156 ms QT Int : 458 ms P-R-T Axes : 067 -77 079 degrees QTc Int : 504 ms Atrial-sensed ventricular-paced rhythm Abnormal ECG Confirmed by LEVI STROUD MD ([id number]), greeting card editor MADHU JOSE ([id number]) on 05/22/2017 2:12:58 PM Referred By: Damion Alcantar Confirmed By:LEVI STROUD MD 05/22/17 1413 Date Levi Stroud MD CC: Damion Alcantar MD; Marta Perez DO Signed 12 LEAD ELECTROCARDIOGRAM Observed: 05/22/2017 Status: F Source: [place] 2:13 PM [facility] REPOSITORY [facility] Cardiovascular Services [address] [place] [address] 12 Lead EKG 05/15/17 1133 MR#: [id number] Acct: [id number] Name: VALENCIA HENRY Rep #: [id number] : 1945 71 From: Levi Stroud MD Attending Dr: Damion Alcantar MD Status: [facility] Ordering Dr: Damion Alcantar MD Date: 05/15/17 Location: [facility] Sex: F C Admitted: Test Reason : POST PCI Blood Pressure : / mmHG Vent. Rate : 063 BPM Atrial Rate : 063 BPM P-R Int : 186 ms QRS Dur : 160 ms QT Int : 464 ms P-R-T Axes : 079 -81 079 degrees QTc Int : 474 ms AV dual-paced rhythm Abnormal ECG Confirmed by LEVI STROUD MD ([id number]), greeting card editor MADHU JOSE ([id number]) on 05/22/2017 2:13:42 PM Referred By: Damion Alcantar Confirmed By:LEVI STROUD MD 05/22/17 1413 Date Levi Stroud MD CC: Damion Alcantar MD; Marta Perez DO Signed WRIST MIN 3 VIEWS Observed: 05/22/2017 Status: F Source: [place] 2:13 PM [facility] REPOSITORY [facility] Imaging Services [address] [place] [address] Wrist min 3 Views MR#: [id number] Acct: [id number] Name: VALENCIA HENRY Rep #: [id number] : 1945 F 71 From: Alberto Duong MD PCP: Marta Perez DO Status: REG CLI Study: Wrist min 3 Views Date of Exam: 05/22/17 Exam# [id number] Ordering Dr: Melecio Jesus DO STUDY: X-RAY - LEFT WRIST REASON FOR EXAM: Female, 71 years old. Fracture follow-up TECHNIQUE: 3 view(s) of the wrist were obtained. COMPARISON: 05/01/2017. FINDINGS: Again seen is a comminuted impacted fracture of the distal radial metaphysis with dorsal rotation of the articular surface. Although there is some new bone formation, the fracture lines are very evident and nonunion is not excluded. There is shortening. There is a mildly distracted fracture of the tip of the ulnar styloid. There is no dislocation. There is mineralization. RAD/Wrist min 3 Views IMPRESSION: Continued extensive fractures of the distal radius. Nonunion not excluded. Electronically Signed: Alberto Duong MD at 18:48 EST , Service support , CC: Marta Perez DO; Melecio Jesus DO Bread Room Hand: Signed OFFICE VISIT REPORT Observed: 05/16/2017 Status: F Source: [place] 10:44 AM [facility] REPOSITORY [facility] [address] [address] OFFICE VISIT Date of Service: 05/04/17 MR#: [id number] Acct: [id number] Patient: VALENCIA HENRY Rep #: [id number] : 1945 Provider: Gala Cleveland Age/Sex: 71/F [place] [facility] [place] Status: Signed Comments Summary Comments: Remote Dual Chamber Pacemaker Evaluation: Remote interrogation shows atrial burden 0% and no NSVT episodes since last check 02/01/17. Presenting rhythm shows P synchronous paced @ 86 ppm. JE=171%. Battery longevity approx 8.5 yrs. Lead impedances, atrial sensing and auto A/V pace/sense thresholds remain stable. Normal remote PPM function. Pt notified remote transmission received and next f/u appt scheduled for in 3 mos. 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 Reinaldo Egan Patient Characteristics AV/Node Indication: Second degree AV block (Mobitz ll) Underlying rhythm: Mobitz 2 second degree AV block Pacemaker Dependent: Yes Device Characteristics Device: Dual Chamber Type: Pacemaker Remote Follow-Up: Latitude Leads Lead #1 Wood Boatbuilder Lead 1: [email or web address] Model Lead 1: 7740 Chumby Serial# Lead 1: [id number] Date Implanted Lead 1: 12/19/16 Position Lead 1: RA Lead #2 Wood Boatbuilder Lead 2: [email or web address] Model Lead 2: 7741 Decisive BI MRI Serial# Lead 2: [id number] Date Implanted Lead 2: 12/19/16 Position Lead 2: [employer] Diagnostics Pacing % RA Pacin % RV Pacin Mode Switching Total # Episodes: 0 % Mode switched: 0 Arrhythmias Non-Sust Episodes: 0 Measurements Battery Magnet Rate (bmp): 100 Battery Status: LUIS FERNANDO Predicted Remaining Longevity (months or years): 8.5 years RA Measurements Signal Amplitude (mV): 7.4 Impedance (Ohms): 649 Threshold Voltage: 0.7 @ PW(ms): 0.4 RV Measurements Impedance (Ohms): 680 Threshold Voltage: 0.9 @ PW(ms): 0.4 Carlos Settings Pacemaker Mode: DDD Base Rate: 60 bpm Max Track Rate: 130 bpm Maximum AV Delay: 180 msec Billing Codes PM Device Codes: PM Dev Interrogate (Remot Assessment AND Plan Problems 1. Atrioventricular block, second degree I44.1 2. Right bundle-branch block I45.10 3. Presence of cardiac pacemaker Z95.0 4. Bifascicular block I45.2 05/12/17 1039 <Electronically signed by Gala Cleveland > Date Gala Cleveland 05/16/17 1044<Electronically signed by Damion Alcantar MD> Cosigner Signature: Date (if applicable) Damion Alcantar MD CC: CARDIOLOGY VISIT Observed: 05/16/2017 Status: F Source: [place] REPORT 10:44 AM [facility] REPOSITORY [facility] 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 She has a history of obstructive sleep apnea, diffuse arthritis, 2-1 heart block requiring pacemaker placement. Patient is in the process of being evaluated for back surgery. We did do a stress echocardiogram which was abnormal. Diagnostic heart catheterization is recommended. Patient does not have any chest discomfort or heaviness. She does have shortness of breath but feels that this is related to her arthritis. Is not any worse than what it has been. She does not have any further episodes of syncope. However she did fall approximately a month ago and broke her left wrist. She did this while tripping at home. She does not have any lower extremity edema. Intake Vital Signs05/12/17 Height 5 ft 3 in 05/12/17 Weight: 208 lb 05/12/17 Body Mass Index (BMI) 36.8 05/12/17 Blood Pressure 136/72 05/12/17 Blood Pressure Location Rt brachial Intake Visit Reasons: update H AND P for cath Academic Director Required: No Accompanied by: Is patient in pain?: Yes (lower back, left wrist, sharp) Pain scale (1-10): 8 Allergies acetaminophen [From Vicodin] Allergy (Verified 05/12/17 14:03) Itching amoxicillin [From Augmentin] Allergy (Verified 05/12/17 14:03) Unknown atorvastatin [From Lipitor] Allergy (Verified 05/12/17 14:03) Arm pain clavulanic acid [From Augmentin] Allergy (Verified 05/12/17 14:03) Itching hydrocodone [From Vicodin] Allergy (Verified 05/12/17 14:03) Itching pregabalin [From Lyrica] Allergy (Verified 05/12/17 14:03) Rash rofecoxib [From Vioxx] Allergy (Verified 05/12/17 14:03) Unknown sulindac [From Clinoril] Allergy (Verified 05/12/17 14:03) Unknown Medications Clonazepam [Klonopin] 0.5 mg PO DAILY 12/16/16 [History Confirmed 05/12/17] Duloxetine Hcl [Cymbalta] 120 mg PO DAILY 12/16/16 [History Confirmed 05/12/17] Fentanyl [Duragesic] 50 mcg TRANSDERM. Q72H 12/16/16 [History Confirmed 05/12/17] Gabapentin [Neurontin] 600 mg PO BIDCM 12/16/16 [History Confirmed 05/12/17] Mirabegron [Myrbetriq] 50 mg PO DAILY 12/16/16 [History Confirmed 05/12/17] Montelukast [Singulair] 10 mg PO DAILY 12/16/16 [History Confirmed 05/12/17] Oxygen, Home [Home Oxygen] 2 lpm NASAL QHS 12/16/16 [History Confirmed 05/01/17] TraMADol [Ultram (G)] 50 mg PO Q6H PRN PRN 12/16/16 [History Confirmed 05/12/17] Trospium Chloride [Sanctura Xr] 60 mg PO DAILY 12/16/16 [History Confirmed 05/12/17] celecoxib 200 mg capsule 400 mg PO QDAY cap 05/12/17 [History Confirmed 05/12/17] clopidogrel 75 mg tablet 75 mg PO QDAY #34 tab 05/12/17 [Rx Confirmed 05/12/17] Ejection fraction %: 65 to 70 PFSH Medical History Presence of normal functioning cardiac pacemaker (Chronic) GERD (gastroesophageal reflux disease) (Chronic) Hypercholesteremia (Chronic) Syncope (Chronic) Other secondary pulmonary hypertension (Chronic) Nonrheumatic tricuspid (valve) insufficiency (Chronic) Obstructive sleep apnea (adult) (pediatric) (Chronic) Abnormal electrocardiogram (Chronic) Mobitz type 2 second degree AV block (Chronic) RBBB (right bundle branch block) (Chronic) Bifascicular block (Chronic) Surgical History Pacemaker (Chronic 12/19/16) H/O: hysterectomy (Inactive) History of bilateral total hip arthroplasty (Inactive) History of bilateral total hip arthroplasty (Inactive) gallbladder removal (Inactive) s/p back fusion (Inactive) Family History Father Unknown family medical history Social History Smoking Status: Never smoker alcohol intake: never substance use type: does not use caffeine: Yes Type: coffee what type of physical activity do you participate in: none seatbelt use: always do you feel safe at home: Yes ROS Const Const: Negative for weakness, fatigue, fever(s) or headache(s) Eyes Eyes: Negative for blind spots, loss of peripheral vision or transient loss of vision ENT ENT: Negative for headache(s), Negative for dizziness, Negative for tinnitus, Negative for Nosebleed/epistaxis Cardio Chest Pain: No Palpitations: Positive for No Edema: None Muscle aches with walking: None Resp Respiratory: Negative for SOB with activity, SOB at rest or SOB orthopnea\SOB lying down GI GI: Negative nausea, vomiting, heartburn or vomiting blood/hematemesis : Negative for hematuria Musc Musc: Positive for muscle aches/ myalgia and joint pain Neuro Neuro: Negative for weakness, Negative for headache(s), Negative for dizziness, Negative for near syncope, Negative for syncope, Negative for lightheadedness Blu Hematologic/Lymphatic: Negative for easy bleeding Endo Endo: Negative for fatigue Cardiology Exam Const Appearance: cooperative, no acute distress and well developed Orientation: alert, awake and oriented x3 Head Head: normocephalic and atraumatic Mouth: moist mucous membranes Eyes General: appearance normal, both eyes and all related structures Conjunctivae: conjunctivae normal Pupils: PERRL EOM: EOM intact bilaterally Neck Neck: normal visual inspection, no lymphadenopathy and no JVD Carotids: Negative bruit Neck Mass: Negative Neck mass Chest Chest inspection: normal inspection of the chest, symmetric chest movement and Pacemaker/ICD Yes left pectoral incision Auscultation: Bilateral: Clear to Auscultation Cardio Palpation: normal PMI Rate: regular rate Rhythm: regular rhythm Heart sounds: S1 normal and S2 normal; negative rub, gallop or murmur GI GI: normal to inspection, soft, no hepatosplenomegaly and bowel sounds present; negative tender Neuro General: alert, awake, oriented x3, CN's II-XI intact bilaterally and moves all extremities Extremities Pulses: Normal: Right Posterior Tibial Pulse, Left Posterior Tibial Pulse, Right Radial Pulse, Left Radial Pulse Upper Extremity: cast on left forearm Lower Extremity Edema: None: Bilateral Psych Psychological: normal affect Assessment AND Plan 1. Abnormal stress echocardiography R94.39 Plan - MATT Suazo With patient's abnormal stress test and upcoming back surgery would like to proceed with a diagnostic heart catheterization to assure the patient does not have any underlying coronary artery disease. Patient is agreeable with this. She was instructed to start her Plavix on Monday night with 300 mg then to take a Plavix in the morning in addition to her aspirin. Follow-up will be based upon catheterization Orders Orders: 2. Presence of cardiac pacemaker Z95.0 Plan - MATT Suazo Device is functioning appropriately. She does have a pacemaker for AV block. She will continue to have this monitored routinely. 3. Other secondary pulmonary hypertension I27.29 Plan - MATT Suazo Patient will continue with oxygen as needed in addition to her CPAP. 4. Presence of normal functioning cardiac pacemaker Z95.0 Plan - MATT Suazo Patient will continue with regular scheduled pacemaker interrogations. Device is functioning appropriately. Plan Detail Other Orders Orders: Other Medications New: Additional Comments - MATT Suazo The above patient was discussed with Dr. Alcantar, he agrees with plan of care. Thank you for allowing us to participate in patient's plan of care, if you have any questions please do not hesitate to call. This note was generated using a voice recognition system and there may be incorrect words, spelling or punctuation errors that were not noted when reviewing the office note prior to saving. Follow Up 6 Months (DJN) Coding Level of Care Code Off vis,est,level 3 Diagnoses Abnormal stress echocardiography R94.39 Presence of cardiac pacemaker Z95.0 Other secondary pulmonary hypertension I27.29 Presence of normal functioning cardiac pacemaker Z95.0 Coding Level of Care Code Off vis,est,level 3 Diagnoses Abnormal stress echocardiography R94.39 Presence of cardiac pacemaker Z95.0 Other secondary pulmonary hypertension I27.29 Presence of normal functioning cardiac pacemaker Z95.0 05/12/17 1535 <Electronically signed by Joann GUTIERREZ> Date Joann GUTIERREZ 05/16/17 1044<Electronically signed by Damion Alcantar MD> Cosigner Signature: Date (if applicable) Damion Alcantar MD CC: Marta Perez DO DISCHARGE INSTRUCTION Observed: 05/16/2017 Status: F Source: [place] 9:12 AM [facility] REPOSITORY [facility] Medical Records Department [facility] [place] [address] Instructions for Home/Discharge Instructions 05/16/17905 MR#: [id number] Acct: [id number] Name: VALENCIA HENRY Rep #: [id number] : 1945 71 From: Joann GUTIERREZ PCP: Marta Perez DO Status: REG [facility] [place] Discharge Diet: Low fat/ Low Cholesterol Discharge Activity: Return to Normal Activity - Do not lift anything greater than 10 lbs for 3 days May shower in (days): 1 Lifting Restrictions: 10 pounds and also avoid any pushing or pulling for 3 days after your test. Call your doctor if your incision/area has: Increased Pain/ Swelling, Increased Redness, Foul Smelling Discharge, Swelling at the incision site Call your doctor if you observe: Fever of 101 or Higher, Shortness of breath, Chest pain Remove Dressing in (days):: 1 Cleanse incision/area with: Soap AND Water Additional Dressing/Incision Instructions:: Keep the dressing (bandage) on until the next morning. You may then shower, but do not take a tub bath for 5 days after your test. It is normal to have some tenderness and discomfort at the puncture site. Sometimes bruising also occurs. However, if pain, numbness, or coldness occurs below the puncture site (in your leg, toes, arms or fingers) call your doctor at once. You may have a small, marble sized knot at the puncture site. This is normal. Do not rub it. It will go away in 4-6 weeks. Bleeding can occur from the area where the puncture was done. Blood may spurt or drip from the site. If blood spurts, apply pressure right away to stop bleeding and call 911. Although rare, bleeding into the tissue (hematoma) can also occur. If this happens, a large, firm area goose egg under the skin will appear. If any of these occur, lie down as flat as you can and have someone apply firm pressure to the cath site with a gauze pad or a clean washcloth for 10-15 minutes. Call 911 or go to the Emergency Department. Additional Instructions: You were started on Plavix, you need to stay on Plavix for at least one year before this can be interrupted. If anyone asks that you hold your Plavix you need to contact our office prior to doing so. Unfortunately this means that you back surgery will be post-poned. At your office visit we will discuss cardiac rehab. Allergies/Adverse Reactions: Allergies acetaminophen [From Vicodin] Allergy (Verified 05/12/17 14:03) Itching amoxicillin [From Augmentin] Allergy (Verified 05/12/17 14:03) Unknown atorvastatin [From Lipitor] Allergy (Verified 05/12/17 14:03) Arm pain clavulanic acid [From Augmentin] Allergy (Verified 05/12/17 14:03) Itching hydrocodone [From Vicodin] Allergy (Verified 05/12/17 14:03) Itching pregabalin [From Lyrica] Allergy (Verified 05/12/17 14:03) Rash rofecoxib [From Vioxx] Allergy (Verified 05/12/17 14:03) Unknown sulindac [From Clinoril] Allergy (Verified 05/12/17 14:03) Unknown Medications to take at Discharge Clonazepam [Klonopin] 0.5 mg PO DAILY 12/16/16 Duloxetine Hcl [Cymbalta] 120 mg PO DAILY 12/16/16 Fentanyl [Duragesic] 50 mcg TRANSDERM. Q72H 12/16/16 Gabapentin [Neurontin] 600 mg PO BIDCM 12/16/16 Mirabegron [Myrbetriq] 50 mg PO DAILY 12/16/16 Montelukast [Singulair] 10 mg PO DAILY 12/16/16 Oxygen, Home [Home Oxygen] 2 lpm NASAL QHS 12/16/16 TraMADol [Ultram] 50 mg PO Q6H PRN PRN 12/16/16 Trospium Chloride [Sanctura Xr] 60 mg PO DAILY 12/16/16 celecoxib 200 mg capsule 400 mg PO QDAY cap 05/12/17 clopidogrel 75 mg tablet 75 mg PO QDAY #34 tab 05/12/17 Aspirin [Aspirin, Baby] 324 mg PO DAILY@0800 05/15/17 Primary Care Physician: Marta Perez DO [Primary Care Provider] - Please follow up with your Primary Care Physician in: 4-6 weeks Please Follow Up With: Heriberto Vale NP-C When: 06/08 at 10am Proposed Discharge Date: 05/16/17 Cardiac Rehabilitation Info Cardiac Rehabilitation Program Information: Cardiac Rehabilitation is important for patients like you who are recovering from a heart problem. Cardiac rehabilitation programs are recognized as integral to the continued care of the patient with coronary heart disease. The cardiac rehabilitation program is designed to optimize a patient's physical, psychological, and social functioning. Health school childcare attendant work in cardiac rehabilitation programs and assist you with getting the treatments you need to get stronger and healthier - like exercise, healthy eating habits, and medications. Cardiac rehabilitation has been show to help people with heart problems live longer and have better life enjoyment than people who do not go to cardiac rehabilitation. Please contact the Cardiac Rehabilitation Program at [facility] at in two weeks if you have not heard from them. 05/16/17911 <Electronically signed by Joann GUTIERREZ> Date Joann GUTIERREZ CC: Marta Perez DO BASIC METABOLIC Collected: 05/16/2017 Status: F Source: [place] PROFILE (BMP) 6:10 AM [facility] REPOSITORY TYPE CODE TESTS RESULT OUT OF RANGE REFERENCE UNITS LAB L501.0100 74-106 mg/dL Normal GLU 103 LAB L501.1000 7-18 mg/dL Normal BUN 13 LAB L501.1100 0.55-1.02 mg/dL Normal 0.68 CREAT,SERUM Result Comment: The validity of the calculated GFR AND GFRAA in patients over 70 years has not been determined. Clinical correlation is essential. LAB L501.1110 >60 mL/min Normal EST GFR 89 Result Comment: Non- GFR Calc LAB L501.1115 >60 mL/min Normal EST GFR - AA 108 Result Comment: GFR Calc LAB L501.1255 ml/min Normal Estimated CRCL 41.45 LAB L501.1300 10-20 RATIO Normal BUN/CRE 19.0 LAB L501.2200 8.5-10 mg/dL Low .1 CA 8.3 LAB L501.5300 136-14 mmol/L Normal 5 NA 140 LAB L501.5600 3.5-5. mmol/L Normal 1 K 3.8 LAB L501.5900 98-107 mmol/L High CL 108 LAB L501.6100 21.0-3 mmol/L Normal 2.0 CO2 26.0 LAB L501.6200 5-15 Normal GAP 6 Performed By: #### L500.2500, L500.4100 #### [facility] [address] [place], [address] LIPID PROFILE Collected: 05/16/2017 Status: F Source: [place] 6:10 AM [facility] REPOSITORY TYPE CODE TESTS RESULT OUT OF RANGE REFERENCE UNITS LAB L501.4900 200 mg/dL Normal CHOL 198 Result Comment: <200 mg/dL Desirable 200-240 mg/dL Borderline >240 mg/dL High Risk LAB L501.5000 mg/dL Normal TRIG 103 Result Comment: The drugs N-Acetylcysteine and Metamizole may falsely depress this assay. Serum Triglycerides Reference Interval Normal <150 mg/dL Borderline high 150 - 199 mg/dL High 200 - 499 mg/dL Very High > or = 500 mg/dL LAB L501.6400 mg/dL Normal HDL 51 Result Comment: The drugs N-Acetylcysteine and Metamizole may falsely depress this assay. Reference Range HDL <40 mg/dL Low HDL Cholesterol HDL >or= 60 mg/dL High HDL Cholesterol LAB L501.6500 0-130 mg/dL Normal LDL 126 LAB L501.6600 5-40 mg/dL Normal VLDL 21 Performed By: #### L500.2500, L500.4100 #### [facility] [address] [place], [place], [id number] CBC-COMPLETE BLOOD CNT Collected: 05/16/2017 Status: F Source: [place] NO DIFF 6:00 AM [facility] REPOSITORY Order Comment: Comments: 6H post procedure AND Q6H x 4 TYPE CODE TESTS RESULT OUT OF RANGE REFERENCE UNITS LAB L100.1000 4.4-11.0 K/mm3 Normal WBC 7.7 LAB L100.1200 4.2-5.4 M/mm3 Normal RBC 4.32 LAB L100.1300 12.0-15.0 g/dl Normal HGB 12.9 LAB L100.1400 37-47 % Normal HCT 39.7 LAB L100.1500 81-99 fL Normal MCV 91.9 LAB L100.1600 27.0-32.0 pg Normal MCH 29.9 LAB L100.1700 32-36 g/gl Normal MCHC 32.5 LAB L100.1810 11.6-14.6 % Normal RDW CV 13.2 LAB L100.1820 35.1-43.9 fl High RDW SD 44.6 LAB L100.1900 150-450 K/mm3 Normal PLT 155 LAB L100.2000 6.2-12.0 fl Normal MPV 9.5 Performed By: #### L100.0500 #### [facility] [address] [place], [address] CBC-COMPLETE BLOOD CNT Collected: 05/15/2017 Status: F Source: [place] NO DIFF 10:55 PM [facility] REPOSITORY Order Comment: Comments: 6H post procedure AND Q6H x 4 TYPE CODE TESTS RESULT OUT OF RANGE REFERENCE UNITS LAB L100.1000 4.4-11.0 K/mm3 Normal WBC 7.8 LAB L100.1200 4.2-5.4 M/mm3 Normal RBC 4.41 LAB L100.1300 12.0-15.0 g/dl Normal HGB 13.2 LAB L100.1400 37-47 % Normal HCT 40.1 LAB L100.1500 81-99 fL Normal MCV 90.9 LAB L100.1600 27.0-32.0 pg Normal MCH 29.9 LAB L100.1700 32-36 g/gl Normal MCHC 32.9 LAB L100.1810 11.6-14.6 % Normal RDW CV 13.2 LAB L100.1820 35.1-43.9 fl Normal RDW SD 43.5 LAB L100.1900 150-450 K/mm3 Normal PLT 162 LAB L100.2000 6.2-12.0 fl Normal MPV 9.0 Performed By: #### L100.0500 #### [facility] [address] [facility] [facility] [place], [address] CPK TOTAL, CREATINE Collected: 05/15/2017 Status: F Source: [place] KINASE 10:55 PM [facility] REPOSITORY TYPE CODE TESTS RESULT OUT OF RANGE REFERENCE UNITS LAB L501.3620 26-192 U/L Normal CPK TOTAL 156 Performed By: #### L501.3620 #### [facility] [address] [facility] [place], [address] CBC-COMPLETE BLOOD CNT Collected: 05/15/2017 Status: F Source: [place] NO DIFF 6:00 PM [facility] REPOSITORY Order Comment: Comments: 6H post procedure AND Q6H x 4 TYPE CODE TESTS RESULT OUT OF RANGE REFERENCE UNITS LAB L100.1000 4.4-11.0 K/mm3 Normal WBC 7.4 LAB L100.1200 4.2-5.4 M/mm3 Normal RBC 4.40 LAB L100.1300 12.0-15.0 g/dl Normal HGB 13.1 LAB L100.1400 37-47 % Normal HCT 40.0 LAB L100.1500 81-99 fL Normal MCV 90.9 LAB L100.1600 27.0-32.0 pg Normal MCH 29.8 LAB L100.1700 32-36 g/gl Normal MCHC 32.8 LAB L100.1810 11.6-14.6 % Normal RDW CV 13.2 LAB L100.1820 35.1-43.9 fl Normal RDW SD 43.6 LAB L100.1900 150-450 K/mm3 Normal PLT 167 LAB L100.2000 6.2-12.0 fl Normal MPV 9.3 Performed By: #### L100.0500 #### [facility] [address] [facility] [place], [address] CPK TOTAL, CREATINE Collected: 05/15/2017 Status: F Source: KAMLESH KINASE 6:00 PM [facility] REPOSITORY TYPE CODE TESTS RESULT OUT OF RANGE REFERENCE UNITS LAB L501.3620 26-192 U/L Normal CPK TOTAL 160 Performed By: #### L501.3620 #### [facility] [address] [facility] [place], [address] ACT ACTIVATED CLOTTING Collected: 05/15/2017 Status: F Source: KAMLESH TIME 2:29 PM [facility] REPOSITORY TYPE CODE TESTS RESULT OUT OF RANGE REFERENCE UNITS LAB L9100.0100 74-137 sec High ACTk CLOT 158 TIME Performed By: #### L9100.0100 #### [facility] Point [facility] Care [address] [facility] [place] [address] CPK TOTAL, CREATINE Collected: 05/15/2017 Status: F Source: KAMLESH KINASE 1:30 PM [facility] REPOSITORY Order Comment: REDRAW. PREVIOUS SPECIMEN REJECTED DUE TO HEMOLYSIS. 05/15/17 Chris Ochoa. TYPE CODE TESTS RESULT OUT OF RANGE REFERENCE UNITS LAB L501.3620 26-192 U/L Normal CPK TOTAL 150 Performed By: #### L501.3620 #### [facility] [address] [facility] [place], [address] ACT ACTIVATED CLOTTING Collected: 05/15/2017 Status: F Source: K[place] TIME 1:30 PM [facility] REPOSITORY TYPE CODE TESTS RESULT OUT OF RANGE REFERENCE UNITS LAB L9100.0100 74-137 sec High ACTk CLOT 180 TIME Performed By: #### L9100.0100 #### [facility] Point [facility] [address] [place], [place] [id number] CBC-COMPLETE BLOOD CNT Collected: 05/15/2017 Status: F Source: [place] NO DIFF 12:40 PM [facility] REPOSITORY Order Comment: Comments: 6H post procedure AND Q6H x 4 TYPE CODE TESTS RESULT OUT OF RANGE REFERENCE UNITS LAB L100.1000 4.4-11.0 K/mm3 Normal WBC 6.0 LAB L100.1200 4.2-5.4 M/mm3 Normal RBC 4.55 LAB L100.1300 12.0-15.0 g/dl Normal HGB 13.9 LAB L100.1400 37-47 % Normal HCT 41.3 LAB L100.1500 81-99 fL Normal MCV 90.8 LAB L100.1600 27.0-32.0 pg Normal MCH 30.5 LAB L100.1700 32-36 g/gl Normal MCHC 33.7 LAB L100.1810 11.6-14.6 % Normal RDW CV 14.1 LAB L100.1820 35.1-43.9 fl High RDW SD 45.1 LAB L100.1900 150-450 K/mm3 Normal PLT 254 LAB L100.2000 6.2-12.0 fl High MPV 12.2 Performed By: #### L100.0500 #### [facility] [address] [place], [address] ACT ACTIVATED CLOTTING Collected: 05/15/2017 Status: F Source: K[place] TIME 10:55 AM [facility] REPOSITORY TYPE CODE TESTS RESULT OUT OF RANGE REFERENCE UNITS LAB L9100.0100 74-137 sec High ACTk CLOT 202 TIME Performed By: #### L9100.0100 #### [facility] [address] [place], [place] [address] CBC W/DIFF, AUTOMATED Collected: 05/12/2017 Status: F Source: K[place] 3:20 PM [facility] REPOSITORY TYPE CODE TESTS RESULT OUT OF RANGE REFERENCE UNITS LAB L100.1000 4.4-11.0 K/mm3 Normal WBC 6.1 LAB L100.1200 4.2-5.4 M/mm3 Normal RBC 4.60 LAB L100.1300 12.0-15.0 g/dl Normal HGB 13.9 LAB L100.1400 37-47 % Normal HCT 42.4 LAB L100.1500 81-99 fL Normal MCV 92.2 LAB L100.1600 27.0-32.0 pg Normal MCH 30.2 LAB L100.1700 32-36 g/gl Normal MCHC 32.8 LAB L100.1810 11.6-14.6 % Normal RDW CV 13.3 LAB L100.1820 35.1-43.9 fl Normal RDW SD 43.3 LAB L100.1900 150-450 K/mm3 Normal PLT 190 LAB L100.2000 6.2-12.0 fl Normal MPV 9.6 LAB L100.2100 47-70 % Normal NEUT% 58.4 LAB L100.2200 19-41 % Normal LY% 28.1 LAB L100.2300 0-10 % Normal MONO% 9.4 LAB L100.2400 0-5 % Normal EO% 3.1 LAB L100.2500 0-1 % Normal BASO% 0.7 LAB L100.2550 0.0-0.9 % Normal IM GRAN % 0.300 Result Comment: IG% - Immature Granulocytes (promyelocytes, myelocytes and metamyelocytes) > 1% indicates that a LEFT SHIFT is Present. LAB L100.2620 2.0-7.7 X10 3/uL Normal Absolute Neut 3.5 LAB L100.2720 0.83-4.51 X10 3/ul Normal Absolute Lymph 1.70 Performed By: #### L100.0100, L500.2500 #### [facility] [address] [place], [address] BASIC METABOLIC Collected: 05/12/2017 Status: F Source: KAMLESH PROFILE (BMP) 3:20 PM [facility] REPOSITORY TYPE CODE TESTS RESULT OUT OF RANGE REFERENCE UNITS LAB L501.0100 74-106 mg/dL Normal GLU 100 LAB L501.1000 7-18 mg/dL Normal BUN 18 LAB L501.1100 0.55-1.02 mg/dL Normal 0.79 CREAT,SERUM Result Comment: The validity of the calculated GFR AND GFRAA in patients over 70 years has not been determined. Clinical correlation is essential. LAB L501.1110 >60 mL/min Normal EST GFR 76 Result Comment: Non- GFR Calc LAB L501.1115 >60 mL/min Normal EST GFR - AA 92 Result Comment: GFR Calc LAB L501.1300 10-20 RATIO High BUN/CRE 22.9 LAB L501.2200 8.5-10.1 mg/dL CA Normal 8.5 LAB L501.5300 136-145 mmol/L NA Normal 141 LAB L501.5600 3.5-5.1 mmol/L K Normal 4.1 LAB L501.5900 98-107 mmol/L High CL 108 LAB L501.6100 21.0-32.0 mmol/L Normal CO2 27.0 LAB L501.6200 5-15 Normal GAP 6 Performed By: #### L100.0100, L500.2500 #### [facility] [address] [facility] [place], [place], [address] PROTHROMBIN TIME W/INR Collected: 05/12/2017 Status: F Source: [place] 3:20 PM [facility] REPOSITORY TYPE CODE TESTS RESULT OUT OF RANGE REFERENCE UNITS LAB L300.4150 11.7-14.9 SECONDS Normal PROTIME 12.5 LAB L300.4200 Normal INR 1.0 Performed By: #### L300.3900, L300.4310 #### [facility] [address] [place], [address] PARTIAL THROMBOPLAST Collected: 05/12/2017 Status: F Source: [place] TIME 3:20 PM [facility] REPOSITORY TYPE CODE TESTS RESULT OUT OF RANGE REFERENCE UNITS LAB L300.4310 24.1-36.2 Seconds Normal PTT 25.5 Performed By: #### L300.3900, L300.4310 #### [facility] [address] [place], [address] 12 LEAD EKG PERFORMED Observed: 05/12/2017 Status: F Source: [place] BY BMS 2:25 PM [facility] REPOSITORY [facility] [address] [place] [address] 12 Lead EKG performed by BMS 05/12/17 1417 MR#: [id number] Acct: [id number] Name: VALENCIA HENRY Rep #: [id number] : 1945 71 From: Joann GUTIERREZ Attending Dr: Joann Walls Status: DEP AMB Ordering Dr: Joann Walls Date: 05/12/17 [place] [facility] [place] Sex: F C Admitted: BMS/12 Lead EKG performed by BMS ECG Report Interpretation Electronic ventricular pacemaker -possibly demand type Pacemaker ECG, No further analysis INSUFFICIENT DATAElectronically signed on 05/29/2017 at 13:45 by Damion Alcantar 05/29/17 1348 Date Joann GUTIERREZ CC: Marta Perez DO Date Dictated: 05/12/171416 Date Transcribed: 05/12/171416 Bread Room Hand: CHIARA Signed STRESS TEST ECHO W/ Observed: 05/10/2017 Status: F Source: [place] CONTRAST 2:34 PM [facility] REPOSITORY [facility] [address] [place] [address] Stress Test Echo W/Contrast MR#: [id number] Acct: [id number] Name: VALENCIA HENRY Rep #: [id number] : 1945 71 From: Damion lAcantar MD Primary Care: Marta Perez DO Status: REG CLI Ordering Dr: Damion Alcantar MD Sex: F C Reason For Study: Abnormal EKG, Syncope Stress Results Protocol: Dobutamine Stress Echo Maximum Predicted HR: 147 bpm Target HR: 125 bpm% Maximum Pre dicted HR: 88 % DurationHeart Rate Stage (mm:ss) (bpm) BPCom ment Baseline 73 156/95 Definity 0.5 ML USed DSE 10 MCG 3:16 65 137/77 DSE 20 MCG 3:00 71 174/71 DSE 30 MCG 5:05 13 0 173/88Atropine 0.5 MG IVP Recovery 86 131/74 Stress Duration: 11:21 mm:ss Maximum Stress HR: 130 bpmME TS: 1 Baseline Echocardiogram Findings Stress Echo Wall motion Data Resting WMIntermediate WMStress WM Resting Wall Motion Wall Motion Stress No regional wall motion Basal anteroseptal: Mildly abnormalities noted. hypokinetic. Mid-Anterior : Hypokinetic. Anterior Martha : Mildly hypokinetic. EKG Data NSR with LAHB, LBBB. The patient was titrated from 10 mcg to a maximun of 30 mcg of dobutamine during the stress. The maximum heart rate attained was 130 beats per minute. This was 88% of maximum predicted heart rate. During dobutamine infusion, there were no ST or T wave changes noted to suggest ischemia. Interpretation Summary Basal anteroseptal: Mildly hypokinetic Mid-Anterior : Hypokinetic Anterior Martha : Mildly hypokinetic The patient was titrated from 10 mcg to a maximun of 30 mcg of dobutamine during the stress. Abnormal, adequate dobutamine echocardiogram. Positive for ischemia by echocardiographic criteria. Patient had evidence of mid anterior anteroseptal and anteroapical hypokinesis at peak infusion noted in the parasternal long and parasternal short views. No anginal symptoms noted. Hypertensive blood pressure response to dobutamine. Patient developed A- V dissociation during infusion with associated episodes of supraventricular tachycardia with a wide-complex morphology. This persisted until around 2 minutes 22 seconds into recovery when the patient's rhythm restored to normal sinus rhythm with first-degree AV block. Decreased poor echo windows required Definity infusion. Final LVEF of 65%. Anterior wall motion abnormalities may have been made due to intraventricular conduction delay and ventricular arrhythmia. Recommend clinical correlation. Ordering Physician: Damion Alcantar Referring Physician: Damion Alcantar Performed By: Staci Arcos RDCS, RVT 05/10/17 1434 Date Damion Alcantar MD CC: Damion Alcantar MD; Marta Ropergideon DO Date Dictated: 05/10/17 1258 Date Transcribed: 05/10/17 1434 Bread Room Hand: Signed ORTHOPEDIC VISIT Observed: 05/08/2017 Status: F Source: [place] REPORT 10:43 AM [facility] REPOSITORY [facility] [address] [place] [address] OFFICE VISIT Date of Service: 05/01/17 MR#: [id number] Acct: [id number] Name: VALENCIA HENRY Rep #: [id number] : 1945 Provider: Melecio Jesus DO Age/Sex: 71/F [place] [facility] [place] Status: Signed Intake Intake Visit Reasons: Left wrist Is patient in pain?: Yes Pain scale (1-10): 5 Allergies acetaminophen [From Vicodin] Allergy (Verified 05/01/17 13:42) Unknown amoxicillin [From Augmentin] Allergy (Verified 05/01/17 13:42) Unknown atorvastatin [From Lipitor] Allergy (Verified 05/01/17 13:42) Unknown clavulanic acid [From Augmentin] Allergy (Verified 05/01/17 13:42) Unknown hydrocodone [From Vicodin] Allergy (Verified 05/01/17 13:42) Unknown pregabalin [From Lyrica] Allergy (Verified 05/01/17 13:42) Unknown rofecoxib [From Vioxx] Allergy (Verified 05/01/17 13:42) Unknown sulindac [From Clinoril] Allergy (Verified 05/01/17 13:42) Unknown Medications Clonazepam [Klonopin] 0.5 mg PO DAILY 12/16/16 [History Confirmed 05/01/17] Dexlansoprazole [Dexilant] 60 mg PO DAILY 12/16/16 [History Confirmed 05/01/17] Duloxetine Hcl [Cymbalta] 120 mg PO DAILY 12/16/16 [History Confirmed 05/01/17] Fentanyl [Duragesic] 50 mcg TRANSDERM. Q72H 12/16/16 [History Confirmed 05/01/17] Gabapentin [Neurontin] 600 mg PO BIDCM 12/16/16 [History Confirmed 05/01/17] Mirabegron [Myrbetriq] 50 mg PO DAILY 12/16/16 [History Confirmed 05/01/17] Montelukast [Singulair] 10 mg PO DAILY 12/16/16 [History Confirmed 05/01/17] Multivit-Min/Iron/Folic/Lutein [Centrum Silver Women Tablet] 1 ea PO DAILY 12/16/16 [History Confirmed 05/01/17] Oxygen, Home [Home Oxygen] 2 lpm NASAL QHS 12/16/16 [History Confirmed 05/01/17] TraMADol [Ultram (G)] 50 mg PO Q6H PRN PRN 12/16/16 [History Confirmed 05/01/17] Trazodone HCl 200 mg PO DAILY 12/16/16 [History Confirmed 05/01/17] Trospium Chloride [Sanctura Xr] 60 mg PO DAILY 12/16/16 [History Confirmed 05/01/17] PFSH Surgical History Pacemaker (Acute) H/O: hysterectomy (Inactive) History of bilateral total hip arthroplasty (Inactive) History of bilateral total hip arthroplasty (Inactive) gallbladder removal (Inactive) s/p back fusion (Inactive) Social History Smoking Status: Never smoker HPI Left wrist: Details: VALENCIA HENRY is a 71 year old F here today for f/u on her fractured left wrist. She states it hurts all the time, not as sharp as it used to be. Her cast is in clean dry good condition is still fits well. Denies numbness, tingling or other associated symptoms. She has good rom in the fingers. ROS Const Reports system reviewed and no additional complaints, except as docu Eyes Reports system reviewed and no additional complaints, except as docu ENT Reports system reviewed and no additional complaints, except as docu Card Reports system reviewed and no additional complaints, except as docu Resp Reports system reviewed and no additional complaints, except as docu GI Reports system reviewed and no additional complaints, except as docu Musc Reports as per HPI, Reports joint pain, Reports limited joint movement Skin/Breast Reports system reviewed and no additional complaints, except as docu Neuro Yes system reviewed and no additional complaints, except as docu Psych Reports system reviewed and no additional complaints, except as docu Endo Reports system reviewed and no additional complaints, except as docu Ortho Exam Left Wrist/Hand Motor: EPL: 5, FDP-2: 5, 1st Dorsal Interosseous: 5, APB: 5 Sensation: Radial: I, Ulnar: I, Median: I WRIST: Cast removed secondary to irritation and new cast was applied with gentle mold. No skin breakdown can be appreciated. Patient was minimally tender to palpation across the fracture site. No obvious deformity. X-rays: Evaluated myself patient patient really has not shown any loss of reduction of though she continues have dorsal angulation. Overall radial height however is well-maintained. This appears to be a stable fracture pattern. Assessment AND Plan Problems 1. Colles' fracture of left radius, subsequent encounter for closed fracture with routine healing S52.532D Plan Assessment: After orthopedic status post closed treatment for a left Colles' fracture with routine follow-up. Plan: Due to the irritation from the cast on the volar aspect of the arm probably from some of the molding and change the cast out. I will see the patient back in 4 weeks and we will get x-rays out of plaster at that point time. There is any major issues return. X-rays have been discussed with the family and the patient. But overall stable. I think at her age she should do fine with her overall positioning Orders Orders: Coding Level of Care Code Global Post Op Diagnoses Colles' fracture of left radius, subsequent encounter for closed fracture with routine healing S52.532D 05/08/17 1043 <Electronically signed by Melecio Jesus DO> Date Melecio Jesus DO Cosigner Signature: Date (if applicable) CC: ALLERGIES ALLERGIES DATE TYPE / NAME / CODE REACTION SEVERITY SOURCE CODE 04/13/2018 Drug hydrocodone/[id number] Itching Unknown [place] Allergy/41 4(RXNORM) Community 2110931([facility]) Repository 04/13/2018 Drug sulindac/F457067607(R Unknown Unknown [place] Allergy/41 XNORM) Community 0319806([facility]) Repository 04/13/2018 Drug clavulanic Itching Unknown [place] Allergy/41 acid/T958503558(RXNOR Community 4152378([facility]) Repository 04/13/2018 Drug amoxicillin/P15188795 Itching [place] Allergy/41 5(RXNORM) Community 0718095([facility]) Repository 04/13/2018 Drug atorvastatin/L3694753 Arm pain, [place] Allergy/41 21(RXNORM) myalgias Community 7115132([facility]) Repository 04/13/2018 Drug rofecoxib/S550294322( Unknown Unknown [place] Allergy/41 RXNORM) Community 9941303([facility]) Repository 04/13/2018 Drug pregabalin/[id number] Rash Unknown [place] Allergy/41 (RXNORM) Community 4225515([facility]) Repository 05/22/2017 Drug acetaminophen/T478615 Itching Unknown [place] Allergy/41 605(RXNORM) Community 8430685([facility]) Repository 03/20/2015 DRUG BUPROPION HCL OTHER: SEE C [address] 4806482([facility] CT) 12/24/2010 DRUG/13556 HYDROCODONE-ACETAMINO ITCHING [facility] 1003([facility] [place] D [place]) Repository 11/13/2007 DRUG/46148 MEPERIDINE (PF) ITCHING [facility] 1003([facility] D CT) Repository 11/13/2007 DRUG CYCLOBENZAPRINE HCL [place] [address] 2133749([facility] CT) 10/17/2007 DRUG SULINDAC GI UPSET [address] 5373283(SN Repository [facility]) 10/17/2007 [facility] [address] 3918538([facility] Repository [facility]) ENCOUNTERS ENCOUNTERS ADMIT/DISCHARGE ACCOUNT ADMITTING ENCOUNTER LOCATION SOURCE NUMBER CLASS 05/01/2018 [id number] Ambulatory BMSBuilding:B [place].[facility] Repository 05/01/2018 [id number] Ambulatory [facility] ing:[facility] Repository 04/19/2018 [id number] Ambulatory [facility] ing:LAB Repository 04/19/2018/04/19/19 [id number] Ambulatory BMSBuilding:B [place].[facility] Repository 04/19/2018/04/19/19 [id number] Ambulatory BMSBuilding:B [place] 19 MS.[facility] Repository 02/21/2018/02/22/20 [id number] Ambulatory BMSBuilding:B [place] 18 MS.[facility] Repository 12/22/2017/12/23/19 [id number] Ambulatory BMSBuilding:B [place] 18 MS.[facility] Repository 11/06/2017/11/07/19 [id number] Ambulatory BMSBuilding:B [place] 18 [place].[facility] Repository 08/21/2017 [id number] Ambulatory [facility] ing:OPBI Repository 08/07/2017/08/08/19 [id number] Ambulatory BMSBuilding:B [place] 18 [place].[facility] Repository 07/05/2017 [id number] [facility] ing:[facility] Repository 06/15/2017 [id number] Ambulatory [facility] ing:BFHLAB Repository 06/12/2017 [id number] [facility] ing:HPRAD Repository 06/12/2017/06/13/19 [id number] Ambulatory BMSBuilding:B [place] [facility] Repository 06/08/2017/06/09/19 [id number] Ambulatory BMSBuilding:B [place] 18 [place].[facility] Repository 05/26/2017/05/26/19 [id number] Ambulatory [address] Repository 05/22/2017 [id number] Ambulatory [facility] ing:HPRAD Repository 05/22/2017/05/22/19 [id number] Ambulatory BMSBuilding:B [place] 18 MS.[facility] Repository 05/16/2017 [id number] Ambulatory BMSBuilding:B [place].CF.[facility] Repository 05/15/2017/05/16/19 [id number] Ambulatory [address] Hospital ing:CLSP Repository 05/15/2017 [id number] Ambulatory BMSBuilding:[facility] Repository 05/12/2017 [id number] Ambulatory [facility] ing:LAB Repository 05/12/2017/05/12/19 [id number] Ambulatory BMSBuilding:B [place] 18 MS.[facility] Repository 05/12/2017 [id number] Ambulatory BMSBuilding:B [place] Repository 05/10/2017 [id number] Ambulatory [facility] ing:[facility] Repository 05/10/2017 [id number] Ambulatory BMSBuilding:[facility] Repository 05/04/2017/05/04/19 [id number] Ambulatory BMSBuilding:B [place] 18 [place].[facility] Repository 05/01/2017/05/01/19 [id number] Ambulatory BMSBuilding:B [place] 18 [facility] Repository PAYERS PAYERS ENCOUNTER GUARANTOR PAYER SUBSCRIBER SOURCE 05/01/2018 VALENCIA Alfonso Primary VALENCIA [place] [id number] Insurance:MEDICARE BRISAAKERDOSerafin: Antonio Mendez [id number] Number: Repository [id number]: [phone] [id number] [phone] () Date:2018-04-19 05/01/2018 Secondary VALENCIA [place] Insurance:MEDICAL BRICKERDOB: [facility] [id number] Hospital Number: Repository [id number] Date:3629-18-26[address] [address]DF: 05/01/2018 Tertiary NOT GIVENUNK [place] Insurance:SELF PAY [facility] Hospital Number: Effective Repository Date:2018-05-01 05/01/2018 VALENCIA L Primary VALENCIA Alfonso [place] [id number] Insurance:MEDICARE BRICKERDOB: [facility] JUAN A SMITH PART A [facility] [id number] Number: Repository [address]Ten: 330 [id number] [phone] () Date:2018-04-19 05/01/2018 Secondary VLAENCIA Kaden [place] Insurance:MEDICAL BRICKERDOB: [facility] [id number] Hospital Number: Repository [id number] Date:4019-55-66MK[address] [address]BP: 05/01/2018 Tertiary NOT GIVENUNK [place] Insurance:SELF PAY [facility] Hospital Number: Effective Repository Date:2018-04-19 04/19/2018 VALENCIA L Primary VALENCIA [place] [id number] Insurance:MEDICARE BRICKERDOB: [facility] JUAN A SMITH PART A [facility] [id number] Number: Repository [address]Phd: 330 [id number] [phone] (HP) Date:2018-04-19 04/19/2018 Secondary VALENCIA L [place] Insurance:MEDICAL BRICKERDOB: [facility] [id number] Hospital Number: Repository [id number] Date:5441-83-81QE[address] [address]TC: 04/19/2018 Tertiary NOT GIVENUNK [place] Insurance:SELF PAY [facility] Hospital Number: Effective Repository Date:2018-04-19 04/19/2018 VALENCIA L Primary VALENCIA Alfnoso [place] [id number] Insurance:MEDICARE BRICKERDOB: [facility] JUAN A SMITH PART A [facility] [id number] Number: Repository [address]Vkz: 330 [id number] [phone] () Date:2017-12-22 04/19/2018 Secondary VALENCIA L [place] Insurance:MEDICAL BRICKERDOB: [facility] [id number] Hospital Number: Repository [id number] Date:4183-62-88EP [address] [place] [address]GE: 04/19/2018 Tertiary NOT GIVENUNK [place] Insurance:SELF PAY [facility] Hospital Number: Effective Repository Date:2018-04-17 04/19/2018 VALENCIA L Primary VALENCIA L [place] [id number] Insurance:MEDICARE BRICKERDOB: [facility] JUAN A SMITH PART A [facility] [id number] Number: Repository [address]Rev: 330 [id number] [phone] () Date:2018-02-28 04/19/2018 Secondary VALENCIA L [place] Insurance:MEDICAL BRICKERDOB: [facility] [id number] Hospital Number: Repository [id number] Date:4947-27-16DY [address] [place] [address]DR: 04/19/2018 Tertiary NOT GIVENUNK [place] Insurance:SELF PAY [facility] Hospital Number: Effective Repository Date:2018-04-19 02/21/2018 VALENCIA L Primary VALENCIA L [place] [id number] Insurance:MEDICARE BRICKERDOB: [facility] JUAN A SMITH PART A [facility] [id number] Number: Repository [id number]: 330 [id number] [phone] () Date:2017-11-06 02/21/2018 Secondary VALENCIA L [place] Insurance:AARPPolicy BRICKERDOB: [facility] Number: [id number] Hospital [id number] Repository Date:7716-20-91[address], [place] [address]PW: 02/21/2018 Tertiary NOT GIVENUNK [place] Insurance:SELF PAY [facility] Number: Effective Repository Date:2018-02-21 12/22/2017 VALENCIA L Primary VALENCIA Alfonso [place] [id number] Insurance:MEDICARE BRICKERDOB: Community JUAN A DR PART A [id number] [place] Number[facility] Repository [address]Lhj: 330 [id number] [phone] () Date:2017-05-12 12/22/2017 Secondary VALENCIA L [place] Insurance:AARPPolicy BRICKERDOB: Community Number: [id number] Hospital [id number] Repository Date:3052-35-42AV [facility] 392985MTXVCIJ, [place] [address]XM: 12/22/2017 Tertiary NOT GIVENUNK Kamlesh Insurance:SELF PAY [facility] Hospital Number: Effective Repository Date:2017-12-22 11/06/2017 VALENCIA L Primary VALENCIA Alfonso [place] [id number] Insurance:MEDICARE BRICKERDOB: Community JUAN A DR PART A [facility] [id number] [place] Number[facility] Repository [address]Oai: 330 [id number] [phone] () Date:2017-08-07 11/06/2017 Secondary VALENCIA L [place] Insurance:AARPPolicy BRICKERDOB: Community Number: [id number] Hospital [id number] Repository Date:2239-63-05FS [facility] [address]88[address], [place] [address]VQ: 11/06/2017 Tertiary NOT GIVENUNK [place] Insurance:SELF PAY [facility] Number: Effective Repository Date:2017-11-06 08/21/2017 VALENCIA L Primary VALENCIA Alfonso [place] [id number] Insurance:MEDICARE BRICKERDOB: Community JUAN A DR PART A [facility] [id number] [place] Number[facility] Repository [address]Nju: 330 [id number] [phone] () Date:2017-07-27 08/21/2017 Secondary VALENCIA Alfonso [place] Insurance:AARPPolicy BRICKERDOB: Community Number: [id number] Hospital [id number] Repository Date:3139-56-47QO [address]YIWQMSF, [place] [address]EB: 08/21/2017 Tertiary NOT GIVENUNK [place] Insurance:SELF PAY [facility] Number: Effective Repository Date:2017-07-27 08/07/2017 VALENCIA L Primary VALENCIA Alfonso [place] [id number] Insurance:MEDICARE BRICKERDOB: [facility] JUAN A DR PART A [facility] [id number] Number: Repository [address]Jhq: 330 [id number] [phone] () Date:2017-05-12 08/07/2017 Secondary VALENCIA Alfonso [place] Insurance:AARPPolicy BRICKERDOB: Community Number: [id number] Hospital [id number] Repository Date:7874-60-18OL [address]CP[place]VW, [place] [address]CU: 08/07/2017 Tertiary NOT GIVENUNK [place] Insurance:SELF PAY [facility] Number: Effective Repository Date:2017-08-07 07/05/2017 VALENCIA L Primary VALENCIA Alfonso [place] [id number] Insurance:MEDICARE BRICKERDOB: [facility] JUAN A DR PART A [facility] [id number] Number: Repository [address]Xtz: 330 [id number] [phone] () Date:2017-07-05 07/05/2017 Secondary VALENCIA Kaden [place] Insurance:AARPPolicy BRICKERDOB: Community Number: [id number] Hospital [id number] Repository Date:8285-44-82NL [address]TYGEVKM, [place] [address]OD: 07/05/2017 Tertiary NOT GIVENUNK [place] Insurance:SELF PAY [facility] Hospital Number: Effective Repository Date:2017-07-05 06/15/2017 VALENCIA L Primary VALENCIA L [place] [id number] Insurance:MEDICARE BRICKERDOB: Community JUAN A DR PART A [facility] [id number] Number: Repository [address]Xmx: 330 [id number] [phone] () Date:2017-06-15 06/15/2017 Secondary VALENCIA L [place] Insurance:AARPPolicy BRICKERDOB: Community Number: [id number] Hospital [id number] Repository Date:4406-80-42KI [address]YKUZBVX, [place] [address]UY: 06/15/2017 Tertiary NOT GIVENUNK [place] Insurance:SELF PAY [facility] Hospital Number: Effective Repository Date:2017-06-15 06/12/2017 VALENCIA L Primary VALENCIA L [place] [id number] Insurance:MEDICARE BRICKERDOB: [facility] JUAN A DR PART A [facility] [id number] [place] Number[facility] Repository [address]Ati: 330 [id number] [phone] () Date:2017-06-12 06/12/2017 Secondary VALENCIA L [place] Insurance:AARPPolicy BRICKERDOB: Community Number: [id number] Hospital [id number] Repository Date:5091-29-24YC [address]V, [place] [address]JM: 06/12/2017 Tertiary NOT GIVENUNK [place] Insurance:SELF PAY [facility] Hospital Number: Effective Repository Date:2017-06-12 06/12/2017 VALENCIA L Primary VALENCIA L [place] [id number] Insurance:MEDICARE BRICKERDOB: Community JUAN A DR PART A [facility] [id number] Number: Repository [address]Zts: 330 [id number] [phone] () Date:2017-05-22 06/12/2017 Secondary VALENCIA L [place] Insurance:AARPPolicy BRICKERDOB: Community Number: [id number] Hospital [id number] Repository Date:8895-21-32DC [facility] 742542[place]EXXYPC, [place] [address]LA: 06/12/2017 Tertiary NOT GIVENUNK [place] Insurance:SELF PAY [facility] Number: Effective Repository Date:2017-05-22 06/08/2017 VALENCIA L Primary VALENCIA L [place] [id number] Insurance:MEDICARE BRICKERDOB: Community JUAN A DR PART A [facility] [id number] Number: Repository [address]Idf: 330 [id number] [phone] () Date:2017-05-16 06/08/2017 Secondary VALENCIA L [place] Insurance:AARPPolicy BRICKERDOB: Community Number: [id number] Hospital [id number] Repository Date:7514-52-06XE [address]TUWXJNT, [place] [address]UX: 06/08/2017 Tertiary NOT GIVENUNK [place] Insurance:SELF PAY [facility] Number: Effective Repository Date:2017-05-16 05/22/2017 VALENCIA L Primary VALENCIA L [place] [id number] Insurance:MEDICARE BRICKERDOB: [facility] JUAN A DR PART A [facility] [id number] Valley Hospital [place] Number: Repository [address]Veo: 330 [id number] [phone] () Date:2017-05-22 05/22/2017 Secondary VALENCIA L [place] Insurance:AARPPolicy BRICKERDOB: Community Number: [id number] Hospital [id number] Repository Date:0368-86-68LB [address]V, [place] [address]RG: 05/22/2017 Tertiary NOT GIVENUNK [place] Insurance:SELF PAY [facility] Number: Effective Repository Date:2017-05-22 05/22/2017 VALENCIA L Primary VALENCIA L [place] [id number] Insurance:MEDICARE BRICKERDOB: Community JUAN A DR PART A [facility] [id number] Valley [facility] [place] Number: Repository [address]Zub: 330 [id number] [phone] () Date:2017-05-01 05/22/2017 Secondary VALENCIA L [place] Insurance:AARPPolicy BRICKERDOB: Community Number: [id number] Hospital [id number] Repository Date:8524-61-94GZ [address]ESNSW, [place] [address]MJ: 05/22/2017 Tertiary NOT GIVENUNK [place] Insurance:SELF PAY [facility] Number: Effective Repository Date:2017-05-01 05/16/2017 VALENCIA L Primary VALENCIA L [place] [id number] Insurance:MEDICARE BRICKERDOB: [facility] JUAN A DR PART A [facility] [id number], [place] Number: Repository [address]Kih: 330 [id number] [phone] () Date:2017-05-11 05/16/2017 Secondary VALENCIA L [place] Insurance:AARPPolicy BRICKERDOB: Community Number: [id number] Hospital [id number] Repository Date:6768-41-49ZO [address]CLNLPAF, [place] [address]XT: 05/16/2017 Tertiary NOT GIVENUNK [place] Insurance:SELF PAY [facility] Number: Effective Repository Date:2017-05-16 05/15/2017 VALENCIA L Primary VALENCIA L [place] [id number] Insurance:MEDICARE BRICKERDOB: [facility] JUAN A DR PART A [facility] [id number][place] Number: Repository [address]Wjq: 330 [id number] [phone] () Date:2017-05-11 05/15/2017 Secondary VALENCIA L [place] Insurance:AARPPolicy BRICKERDOB: Community Number: [id number] Hospital [id number] Repository Date:5454-81-05WF [address]QGGBETZ, [place] [address]KC: 05/15/2017 Tertiary NOT GIVENUNK [place] Insurance:SELF PAY [facility] Number: Effective Repository Date:2017-05-11 05/15/2017 VALENCIA L Primary VALENCIA L [place] [id number] Insurance:MEDICARE BRICKERDOB: Community JUAN A DR PART A [place] [id number], [place] Number: Repository [address]Qwi: 330 [id number] [phone] () Date:2017-05-11 05/15/2017 Secondary VALENCIA L [place] Insurance:AARPPolicy BRICKERDOB: Community Number: [id number] Hospital [id number] Repository Date:4139-88-58EH [address]UPGCDRN, [place] [address]FS: 05/15/2017 Tertiary NOT GIVENUNK [place] Insurance:SELF PAY [facility] Number: Effective Repository Date:2017-05-15 05/12/2017 VALENCIA L Primary VALENCIA L [place] [id number] Insurance:MEDICARE BRICKERDOB: [facility] JUAN A DR PART A [facility] [id number] [place] Number: Repository [address]Llc: 330 [id number] [phone] () Date:2017-05-12 05/12/2017 Secondary VALENCIA L [place] Insurance:AARPPolicy BRICKERDOB: Community Number: [id number] [facility] [id number] Repository Date:5593-91-44ZS [address]XHVFZUP, [place] [address]GH: 05/12/2017 Tertiary NOT GIVENUNK [place] Insurance:SELF PAY [facility] Number: Effective Repository Date:2017-05-12 05/12/2017 VALENCIA L Primary VALENCIA L [place] [id number] Insurance:MEDICARE BRICKERDOB: Community JUAN A DR PART A [facility] [id number], [place] Number: Repository [address]Leh: 330 [id number] [phone] () Date:2017-05-11 05/12/2017 Secondary VALENCIA L [place] Insurance:AARPPolicy BRICKERDOB: Community Number: [id number] Hospital [id number] Repository Date:0297-96-81BO [facility] 113857MNQE[place], [place] [address]IP: 05/12/2017 Tertiary NOT GIVENUNK [place] Insurance:SELF PAY [facility] Number: Effective Repository Date:2017-05-11 05/12/2017 VALENCIA L Primary VALENCIA L [place] [id number] Insurance:MEDICARE BRICKERDOB: [facility] JUAN A DR PART A [facility] [id number], [place] Number: Repository [address]Rtj: 330 [id number] [phone] () Date:2017-05-12 05/12/2017 Secondary VALENCIA L [place] Insurance:AARPPolicy BRICKERDOB: Community Number: [id number] Hospital [id number] Repository Date:9181-33-30ZM [address]KGPETFZ, [place] [address]RC: 05/12/2017 Tertiary NOT GIVENUNK [place] Insurance:SELF PAY [facility] Hospital Number: Effective Repository Date:2017-05-12 05/10/2017 VALENCIA L Primary VALENCIA L [place] [id number] Insurance:MEDICARE BRICKERDOB: [facility] JUAN A DR PART A [facility] [id number] [facility] [place] Number: Repository [address]Nan: 330 [id number] [phone] () Date:2017-04-24 05/10/2017 Secondary VALENCIA L [place] Insurance:AARPPolicy BRICKERDOB: Community Number: [id number] Hospital [id number] Repository Date:8904-90-28ZB [facility] 349[place]UDL[place], [place] [address]FH: 05/10/2017 Tertiary NOT GIVENUNK [place] Insurance:SELF PAY [facility] Number: Effective Repository Date:2017-04-24 05/10/2017 VALENCIA L Primary VALENCIA L [place] [id number] Insurance:MEDICARE BRICKERDOB: Community JUAN A DR PART A [facility] [id number] Valley Hospital [place] Number: Repository [address]Oef: 330 [id number] [phone] (HP) Date:2017-04-24 05/10/2017 Secondary VALENCIA L [place] Insurance:AARPPolicy BRICKERDOB: Community Number: [id number] Hospital [id number] Repository Date:8822-08-16GB [address]A[place]CHQJ, [place] [address]EB: 05/10/2017 Tertiary NOT GIVENUNK [place] Insurance:SELF PAY [facility] Effective Repository Date:2017-05-10 05/04/2017 VALENCIA L Primary VALENCIA L [place] [id number] Insurance:MEDICARE BRICKERDOB: [facility] JUAN A DR PART A [facility] [id number] Number: Repository [address]Fmi: 330 [id number] [phone] () Date:2017-03-13 05/04/2017 Secondary VALENCIA L [place] Insurance:AARPPolicy BRICKERDOB: Community Number: [id number] Hospital [id number] Repository Date:9153-90-84BC [address]NYZ[place], [place] [address]DU: 05/04/2017 Tertiary NOT GIVENUNK [place] Insurance:SELF PAY [facility] Number: Effective Repository Date:2017-03-13 05/01/2017 VALENCIA L Primary VALENCIA L [place] [id number] Insurance:MEDICARE BRICKERDOB: [facility] JUAN A DR PART A [facility] [id number], [place] Number: Repository [address]Qrk: 330 [id number] [phone] () Date:2017-04-28 05/01/2017 Secondary VALENCIA L [place] Insurance:AARPPolicy BRICKERDOB: Community Number: [id number] Hospital [id number] Repository Date:8883-57-68DP [address]AEOQVHF, [place] [address]QD: 05/01/2017 Tertiary NOT GIVENUNK Kam[place] Insurance:SELF PAY [facility] Number: Effective Repository Date:2017-04-28
== END ==
PROVIDERS: Family Provider Family Medicine; PCP Family Medicine; Referring Provider Internal Medicine Cardiovascular Disease; Visit Provider Internal Medicine Cardiovascular Disease
DX: I25.10 Atherosclerotic heart disease of native coronary artery without angina pectoris (principal); Z01.810 Encounter for preprocedural cardiovascular examination; Z95.9 Presence of cardiac and vascular implant and graft, unspecified; Z95.0 Presence of cardiac pacemaker
CPT/HCPCS: 93017; 93350; J7040; Q9957; A4216; C8928

== ENCOUNTER 2018-05-09 07:48 | Day surgery (SDC) | payer MEDICARE, OTHER, SELFPAY ==
[2017-05-15 13:41] VITALS: BMI 36.9
[2018-04-19 13:17] VITALS: BMI 37.3
--- NOTE | 2018-05-07 08:20 | RAD_ITS ---
HISTORY: Short of breath. EXAM: XR Chest 2 Views: COMPARISON: 12/20/16 chest radiographs. FINDINGS: # of images incl. paperwork: 2 LINES/DEVICES: Implanted cardiac device left chest, leads right atrium and right ventricle, unchanged.. LUNGS: Radiographically clear. No consolidation, edema or effusion. No pneumothorax. MEDIASTINUM AND CARDIOVASCULAR STRUCTURES: Cardiac silhouette not enlarged. Central airways and mediastinal contour are unremarkable. BONES AND SOFT TISSUES: No acute findings. Cervical spine fusion hardware again demonstrated. Degenerative changes left shoulder. Right upper abdominal surgical clips. RAD/Chest PA and Lateral IMPRESSION: No radiographic evidence of acute cardiopulmonary disease. at 0948 Reported and signed by: Edgar Blancas MD Electronically Signed: Edgar Blancas, at 9:47 EST Tel , Service support ,
[2018-05-07 10:18] LABS: Hematocrit 42.2 % (37-47); Hemoglobin 13.8 g/dl (12.0-15.0); Mean Corp Hgb Conc 32.7 g/gl (32-36); Mean Corpuscular Hgb 30.1 pg (27.0-32.0); Mean Corpuscular Volume 91.9 fL (81-99); Mean Platelet Vol. 9.1 fl (6.2-12.0); Platelet Count 237 K/mm3 (150-450); RBC Distribution Width SD 42.3 fl (35.1-43.9); Red Blood Count 4.59 M/mm3 (4.2-5.4); White Blood Count 5.8 K/mm3 (4.4-11.0)
[2018-05-07 10:20] LABS: Scan Indicated on CBC? Y/N NO
[2018-05-07 10:24] LABS: International Normalized Ratio 0.9; Partial Thromboplast Time 27.7 Seconds (24.1-36.2); Prothrombin Time (Protime)PT. 12.5 SECONDS (11.7-14.9)
[2018-05-07 11:04] LABS: Anion Gap 10 (5-15); BUN 20 mg/dL (7-18); BUN/Creat Ratio 24.6 RATIO (10-20); Chloride 107 mmol/L (98-107); Creatinine, Serum 0.81 mg/dL (0.55-1.02); EST Glomerular Filtration Rate 73 mL/min (>60); Est Glom Filt Rate - Afr Amer 89 mL/min (>60); Glucose 85 mg/dL (74-106); Sodium Level 141 mmol/L (136-145)
[2018-05-08 07:37] VITALS: BMI 37.3
--- NOTE | 2018-05-09 12:32 | CL.D_ITS ---
Patient Name: VALENCIA HENRY Study Date: 05/09/2018 Performing: Damion Alcantar MD Ht: 62.99 inches 160 cm : 1945 Wt: 211.64 lbs 96 kg Age: 72 Gender: female BSA: 1.98 PROCEDURE(S) PERFORMED [id number]/LV CLINICAL PROFILE AND INDICATIONS Indications: Pre-Operative Evaluation, Other;abnl stress echo, Myocarditis Heart Failure: None Stress/Imaging Stress Echocardiogram: Yes Result: Positive Low RiskStress Echocardiogram: Positiv e Low Risk Angina Classification Anginal Classification w/in 2 Weeks: No symptoms CAD Presentations: No Sxs, no angina. 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 Pt at low risk for non cardiac back surgery. Would recommend proceeding with back surgery then consi betty elective PCI of RCA once wound has healed and pt can resume DAPT. Widely patent LAD and LCX stents; stress test probably abnormal due to rate dependent LBBB. Manual sheath removal. DESCRIPTION OF PROCEDURE The patient arrived to the procedure lab. The risks and benefits of the procedure as well as a full d escription of our services here and current unavailability of surgical backup were fully explained to the patient and/or their significant other prior to the catheterization. The Timeout was completed, verifying the correct patient and procedure. The patient's procedural site was prepped and draped in the usual fashion. Local anesthetic was given subcutaneously to right groin region with Lidocaine 2%. Using a modified Seldinger technique, arterial access was obtained via the right femoral artery, a 4 Fr sheath was inserted Left Coronary Artery selective angiography was performed in multiple views us ing a 4 Fr. JL5 catheter. Right Coronary Artery selective angiography was then performed in multiple views using a 4 Fr. 3DRC catheter. Left Ventriculography was performed in GIPSON projection using a 4 Fr . Pigtail catheter. LV to AO pullback pressures were then recorded.The arterial sheath was pulled and manual compression applied until hemostasis is achieved. CORONARY ANGIOGRAPHY DOMINANCE: Left Dominant LEFT HEART ASSESSMENT Left Ventricular Ejection Fraction: by LV Gram 65 % Normal LV wall motion Normal Left Ventricular systolic function Normal Left Ventricular End Diastolic Pressure LVEDP: 8 mmHg LEFT MAIN: Angiographically normal LEFT ANTERIOR DECENDING ARTERY: MID LAD: Previously placed stent is patent CIRCUMFLEX ARTERY: Non-obstructive OM 1: Proximal - Previously placed stent is patent RIGHT CORONARY ARTERY: MID RCA: 70 % Stenosis COMPLICATIONS No Complications PROCEDURE MEDICATIONS Versed 1 mg IV Oxygen: 2 L/min via nasal cannula Nitro 200 mcg IC 05/09/2018 12:21:53 SUMMARY OF HEMODYNAMIC DATA Time AIR REST ECG 08:32:42 AO 165/68 (105) SA 12:14:08 LV 163/-19, 2 12:20:08 LV 160/-16, 8 12:20:14 LVp 156/-11, 3 12:20:26 AOp 175/71 (114) 12:20:31 AO 141/57 (89) 12:22:08 Signed By Damion Alcantar MD On 05/09/2018 12:31:28 Damion Alcantar MD
== END 2018-05-09 16:50 | disposition home or self-care (01) ==
LOC: CLSP 07:49
PROVIDERS: Family Provider Family Medicine; PCP Family Medicine; Referring Provider Internal Medicine Cardiovascular Disease; Visit Provider Internal Medicine Cardiovascular Disease
DX: I25.10 Atherosclerotic heart disease of native coronary artery without angina pectoris (principal); Z95.820 Peripheral vascular angioplasty status with implants and grafts; Z95.0 Presence of cardiac pacemaker; Z95.9 Presence of cardiac and vascular implant and graft, unspecified; G47.33 Obstructive sleep apnea (adult) (pediatric); K21.9 Gastro-esophageal reflux disease without esophagitis; E78.00 Pure hypercholesterolemia, unspecified; I27.20 Pulmonary hypertension, unspecified; I10 Essential (primary) hypertension; R55 Syncope and collapse
CPT/HCPCS: 36415; 71046; 80048; 85027; 85610; 85730; 93458; 99152; J7040; Q9967; C1769; C1894

== ENCOUNTER → 2018-06-21 10:48 | Outpatient (CLI) | payer MEDICARE, OTHER, SELFPAY ==
[2017-05-15 13:41] VITALS: BMI 36.9
[2018-05-08 07:37] VITALS: BMI 37.3
--- NOTE | 2018-06-21 11:04 | MRI_ITS ---
STUDY: MRI LUMBAR SPINE WITHOUT CONTRAST REASON FOR EXAM: Female, 72 years old. Low back pain radiating into the legs bilaterally TECHNIQUE: Standardized fat and water weighted pulse sequences were obtained in the sagittal and axial planes. COMPARISON: July 11, 2016 FINDINGS: Normal lumbar lordosis. There is a levoscoliosis of the lumbar spine. Normal conus medullaris that terminates at the L1-2 level. Bilateral posterior pedicle fusions at L4-S1. L1-2: Disc space narrowing and desiccation with discogenic endplate changes and anterior osteophytes. Bulging annulus with mild central canal and moderate to severe right foraminal stenoses. L2-3: Disc space narrowing and desiccation with discogenic endplate changes and anterior osteophytes. Bulging annulus and bilateral facet hypertrophy with moderate central canal and moderate to severe right foraminal stenoses. L3-4: Disc space narrowing and desiccation with discogenic endplate changes and anterior osteophytes. Bulging annulus and bilateral facet hypertrophy with severe central canal stenosis and mass effect on transiting nerve roots. Severe bilateral foraminal stenoses with mass effect on the bilateral exiting L3 nerve roots. L4-5: Bulging annulus and bilateral facet hypertrophy with moderate left lateral recess stenosis and moderate bilateral foraminal stenoses. L5-S1: Bilateral laminectomies. Disc space fusion. Normal visualized sacral ala. Normal visualized paraspinous soft tissue structures. MRI/Spine Lumbar (Routine) IMPRESSION: Multilevel degenerative disease and postoperative change as described, unchanged. At L3-4, there is severe central canal stenosis with mass effect on transiting nerve roots as well as severe bilateral foraminal stenoses with mass effect on the bilateral exiting L3 nerve roots. Electronically Signed: Renard Castro MD at 15:04 EDT Tel , Service support ,
== END ==
PROVIDERS: Family Provider Family Medicine; PCP Family Medicine
DX: M48.061 Spinal stenosis, lumbar region without neurogenic claudication (principal)
CPT/HCPCS: 72148

== ENCOUNTER → 2019-01-03 08:54 | Outpatient (CLI) | payer MEDICARE, OTHER, SELFPAY ==
[2017-05-15 13:41] VITALS: BMI 36.9
[2018-11-19 12:59] VITALS: BMI 37.3
[2019-01-03 09:55] LABS: AST(SGOT) 22 U/L (15-37); Alanine Aminotransfer ALT/SGPT 19 U/L (13-56); Albumin, Serum 3.3 g/dL (3.2-5.0); Alkaline Phosphatase 104 U/L (45-117); Bilirubin, Direct 0.11 mg/dL (0.00-0.30); Cholesterol 196 mg/dL (200); Globulin 3.5 g/dL (2.2-4.2); High Density Lipoprotein 60 mg/dL; Protein, Total 6.8 g/dL (6.4-8.2); Triglycerides 86 mg/dL; Very Low Density Lipoprotein 17 mg/dL (5-40)
== END ==
PROVIDERS: Family Provider Family Medicine; PCP Family Medicine; Referring Provider Internal Medicine Cardiovascular Disease; Visit Provider Internal Medicine Cardiovascular Disease
DX: E78.00 Pure hypercholesterolemia, unspecified (principal)
CPT/HCPCS: 36415; 80061; 80076

== ENCOUNTER → 2019-06-06 09:50 | Outpatient (CLI) | payer MEDICARE, OTHER, SELFPAY ==
[2017-05-15 13:41] VITALS: BMI 36.9
[2019-05-20 13:06] VITALS: BMI 37.2
--- NOTE | 2019-06-06 09:54 | ECHOD_ITS ---
Reason For Study: PHTN Procedure This was a 2D Doppler, Color Flow transthoracic echocardiogram. The study was technically difficult. Exam performed in department. Left Ventricle Normal size and thickness. The estimated ejection fraction is 65 %. Septal motion consistent with IVCD. Unable to assess diastolic dysfunction due to arrhythmia. No regional wall motion abnormalities noted. Right Ventricle Normal size and thickness. ICD or pacer leads identified within the right ventricle. Normal systolic function. Atria Normal left atrium. Normal right atrium. Normal atrial septum. Mitral Valve The mitral valve is structurally normal. No prolapse or stenosis seen. Mild (1+) mitral valve insufficiency. Tricuspid Valve Normal tricuspid valve. Mild to moderate (1-2+) tricuspid valve insufficiency. Right ventricular systolic pressure estimated to be 33 mmHg. Aortic Valve Trisinus/trileaflet aortic valve. Mild diffuse aortic valve thickening. Trivial aortic valve insufficiency. Pulmonic Valve Normal pulmonic valve. Great Vessels Normal aortic root. Normal arch. Normal inferior vena cava. Inferior vena cava collapse with sniff. Pericardium/Pleural No pericardial effusion. Medication 22 gauge I.V. with prn adaptor inserted into left arm. Diluted definity 2ml given slow IV push to enhance endocardial definition. MMode/2D Measurements & Calculations LVIDd: 4.3 cm IVSd: 1.2 cm Ao root diam: 2.9 cm LVIDs: 2.5 cm LVPWd: 0.95 cm FS: 41.2 % LAV(MOD-sp4): 43.3 ml LA A4 area: 16.4 cm2 LA dimension(2D): 3.5 cm Doppler Measurements & Calculations MV E max monica: 112.8 cm/sec Ao V2 max: 139.2 cm/sec LV V1 max: 93.8 cm/sec Ao max P.7 mmHg LV V1 max P.5 mmHg PA V2 max: 80.6 cm/sec TR max monica: 254.3 cm/sec TR max P.9 mmHg Interpretation Summary The estimated ejection fraction is 65 %. Unable to assess diastolic dysfunction due to arrhythmia. Mild (1+) mitral valve insufficiency. Mild to moderate (1-2+) tricuspid valve insufficiency. Right ventricular systolic pressure estimated to be 33 mmHg. Trivial aortic valve insufficiency. Compared to echo report dated 12/16/2016, LV function, mitral and tricuspid regurgitation have remained the same. RVSP has improved from 46 to 33 mmHg. Ordering Physician: Damion Alcantar Referring Physician: Marta Perez Performed By: Tiara Cam RDCS
== END ==
PROVIDERS: PCP Family Medicine; Referring Provider Internal Medicine Cardiovascular Disease; Visit Provider Internal Medicine Cardiovascular Disease
DX: I27.20 Pulmonary hypertension, unspecified (principal); Z98.890 Other specified postprocedural states
CPT/HCPCS: 93306; Q9957; A4216

== ENCOUNTER → 2020-01-06 09:55 | Outpatient (CLI) | payer MEDICARE, OTHER, SELFPAY ==
[2017-05-15 13:41] VITALS: BMI 36.9
[2019-12-11 11:34] VITALS: BMI 35.9
[2020-01-06 09:59] LABS: Mucous, Urine 0 SEEN /hpf (<or=2+); Red Blood Cells-Urine 0 SEEN /hpf (0-5); White Blood Cells 0 SEEN /hpf (0-5)
[2020-01-06 12:32] LABS: Color, Urine Yellow (Yellow); Glucose, Dipstick Normal (Normal); Ketone-Dipstick Negative (Negative); Leukocyte Esterase-Dipstick Negative /ul (Negative); Nitrite-Dipstick Negative (Negative); Occult Blood-Urine Negative /ul (Negative); Protein-Dipstick Negative (Negative); Urine Bilirubin Dipstick Negative (Negative); Urine Clarity Sl. Cloudy (Clear); Urine Urobilinogen Normal (Normal); Urine pH 6.5 (5.0 - 8.0)
[2020-01-06 12:44] LABS: Bacteria 1+ /hpf (None Seen); Squamous Epithelial Cells - UA 0-5 SEEN /hpf (5-10)
== END ==
PROVIDERS: PCP Family Medicine; Visit Provider Family Medicine
DX: R32 Unspecified urinary incontinence (principal)
CPT/HCPCS: 81001; 87086; 87088